=== PATIENT | male | born 1935 | race Caucasian/White ===

== ENCOUNTER 2017-03-06 09:02 | Emergency (ER) | payer OTHER, MEDICARE ==
[~2017-03-06 09:02] MED LIST: CALCIUM CARBON600 M1 PO; FOSAMAX70 M1 PO; LISINOPRIL20 M1 PO; NORVASC5 M1 PO; OMEGA-3 FISH O1 EAC4 PO; PRADAXA150 M1 PO; VITAMIN B-121000 MC3 PO; VITAMIN D31000 UNI2 PO; ZOCOR20 M1 PO
--- NOTE | 2017-03-06 09:30 | ED GI/GU/ABDOMINAL COMPLAINT ---
History of Present Illness General Chief Complaint: Male Genitourinary Problems Stated Complaint: ?REDNESS/PAIN ON PENIS Source: patient, family Exam Limitations: no limitations Vital Signs & Intake/Output Vital Signs & Intake/Output Vital Signs Date Time Temp Pulse Resp B/P B/P Pulse O2 O2 Flow FiO2 Mean Ox Delivery Rate 03/06 1107 96.8 60 18 140/68 100 Room Air 03/06 0907 96.2 59 20 135/75 96 Allergies Coded Allergies: NO KNOWN ALLERGIES (07/04/15) Reconcile Medications Alendronate Sodium (Fosamax) 70 MG TABLET 1 TAB PO QMON BONE (Reported) in the morning, at least 30 minutes before the first food, beverage, or medication of the day Amlodipine Besylate (Norvasc) 5 MG TABLET 1 TAB PO DAILY HEART (Reported) Calcium (Elemental-Fr Calcarb) (Calcium Carbonate) 600 MG CALCIUM (1,500 MG) TABLET 1 TAB PO BID SUPPLEMENT (Reported) Cholecalciferol (Vitamin D3) 1,000 UNIT TABLET 1 TAB PO DAILY VITAMIN SUPPORT (Reported) Cyanocobalamin (Vitamin B-12) 1,000 MCG TABLET 1 TAB PO DAILY VITAMIN SUPPORT (Reported) Dabigatran Etexilate Mesylate (Pradaxa 150 MG) 150 MG CAPSULE 1 CAP PO BID BLOOD THINNER (Reported) Lisinopril 20 MG TABLET 1 TAB PO DAILY HEART (Reported) [place]-3S/Dha/Epa/Fish Oil ([place]-3 Fish Oil 1,000 MG Sfgl) 300-1,000MG CAPSULE 1 CAP PO QPM SUPPLEMENT (Reported) Simvastatin (Zocor*) 20 MG TABLET 1 TAB PO QPM CHOLESTEROL (Reported) Triage Note: PER PT PENIS RED, AND ?SWOLLEN. NOTICED THIS AM NO PAIN WITH URINATION NO REAL PAIN Triage Nurses Notes Reviewed? yes HPI: Patient is uncircumcised and this morning his foreskin got trapped behind the head of the penis and he has been unable to replace it. He is now having throbbing pain to his penis as well as redness. There is no dysuria. There is no fluid fevers or chills. The pain is 6 out of 10. The pain increases with palpation to the area. There is no radiation. Past History Travel History Traveled to [place] past 21 day No Medical History Any Pertinent Medical History? see below for history Neurological: NONE EENT: NONE Cardiovascular: hypertension, ELEVATED CHOLESTEROL Respiratory: NONE Gastrointestinal: NONE Hepatic: NONE Renal: NONE Musculoskeletal: NONE Psychiatric: NONE Endocrine: NONE Surgical History Surgical History: LYMPH NODES Psychosocial History Who do you live with Spouse Services at Home None What is your primary language Belarusian Tobacco Use: Never used ETOH Use: denies use Illicit Drug Use: denies illicit drug use Family History Hx Contributory? No Review of Systems Review of Systems Constitutional: Reports: no symptoms. Respiratory: Reports: no symptoms. Cardiovascular: Reports: no symptoms. GI: Reports: no symptoms. Genitourinary: Reports: see HPI. Musculoskeletal: Reports: no symptoms. Neurological/Psychological: Reports: no symptoms. Immunologic/Allergic: Reports: no symptoms. Physical Exam Physical Exam General Appearance: well developed/nourished, alert, awake, anxious, mild distress Eyes: Bilateral: PERRL, EOMI. Respiratory: normal breath sounds, chest non-tender, no respiratory distress, lungs clear Cardiovascular: regular rate/rhythm, normal peripheral pulses Gastrointestinal: normal bowel sounds, soft, non-tender, no organomegaly Male Genitals: PARAPHIMOSIS Neurologic/Psych: no motor/sensory deficits, awake, alert, oriented x 3, normal gait, normal mood/affect Core Measures ACS in differential dx? No Severe Sepsis Present: No Septic Shock Present: No Progress Differential Diagnosis: PARAPHIMOSIS Plan of Care: Orders Procedure Date/time Status PROTHROMBIN TIME 03/06 1230 Complete Laboratory Tests 03/06/17 1243: PT 14.0 H, INR 1.34 H Initial ED EKG: none Comments: Unable to pull the foreskin back over the head of the penis. The penis is turning white and color and there is hyperemia around the rest. There is a fluid-filled blister at the base of the glans. Ice is being applied and the patient has been given morphine and still unable to correct the paraphimosis. Departure Departure Disposition: HOME OR SELF CARE Condition: Stable Clinical Impression Primary Impression: Paraphimosis Referrals: KEYANNA JOYCE,YAMILA GONSALEZ MD,TINY Bethea (PCP/Family) Additional Instructions: FOLLOW UP PER RECOMMENDATIONS FROM DR. BRICEÑO TAKE KELFEX 3 TIMES A DAY HAVE YOUR COUMDAIN LEVEL CHECKED IN 3 DAYS BECAUSE THE ANTIBIOTIC CAN ELEVATE YOUR LEVEL. RETURN FOR ANY CONCERNS Departure Forms: Customer Survey General Discharge Information Prescriptions: Current Visit Scripts Cephalexin (Keflex) 1 CAP PO TID #28 CAP
--- NOTE | 2017-03-06 12:51 | Cons- Urology ---
General Information and HPI Consulting Request Date of Consult: 03/06/17 Requested By: DR LO Reason for Consult: paraphimosis Source of Information: patient, family Exam Limitations: no limitations History of Present Illness: long history of tight foreskin, pulled back today and unable to return Allergies/Medications Allergies: Coded Allergies: NO KNOWN ALLERGIES (07/04/15) Home Med List: Alendronate Sodium (Fosamax) 70 MG TABLET 1 TAB PO QMON BONE (Reported) in the morning, at least 30 minutes before the first food, beverage, or medication of the day Amlodipine Besylate (Norvasc) 5 MG TABLET 1 TAB PO DAILY HEART (Reported) Calcium (Elemental-Fr Calcarb) (Calcium Carbonate) 600 MG CALCIUM (1,500 MG) TABLET 1 TAB PO BID SUPPLEMENT (Reported) Cholecalciferol (Vitamin D3) 1,000 UNIT TABLET 1 TAB PO DAILY VITAMIN SUPPORT (Reported) Cyanocobalamin (Vitamin B-12) 1,000 MCG TABLET 1 TAB PO DAILY VITAMIN SUPPORT (Reported) Dabigatran Etexilate Mesylate (Pradaxa 150 MG) 150 MG CAPSULE 1 CAP PO BID BLOOD THINNER (Reported) Lisinopril 20 MG TABLET 1 TAB PO DAILY HEART (Reported) [place]-3S/Dha/Epa/Fish Oil ([place]-3 Fish Oil 1,000 MG Sfgl) 300-1,000MG CAPSULE 1 CAP PO QPM SUPPLEMENT (Reported) Simvastatin (Zocor*) 20 MG TABLET 1 TAB PO QPM CHOLESTEROL (Reported) Current Medications: Current Medications Sig/Yanna Start time Last Medication Dose Route Stop Time Status Admin Lidocaine 0 .STK-MED ONE 03/06 1149 DC .ROUTE Lidocaine 15 ML ONCE ONE 03/06 1100 DC 03/06 PO 03/06 1101 1135 Lidocaine 0 .STK-MED ONE 03/06 1051 DC PO Morphine Sulfate 2 MG ONCE ONE 03/06 1130 DC 03/06 IV 03/06 1131 1125 Morphine Sulfate 0 .STK-MED ONE 03/06 1127 DC .ROUTE Morphine Sulfate 0 .STK-MED ONE 03/06 1011 DC .ROUTE Morphine Sulfate 2 MG ONCE ONE 03/06 1000 DC 03/06 IV 03/06 1001 1010 Past History Medical History Neurological: NONE EENT: NONE, hearing loss Cardiovascular: hypertension, ELEVATED CHOLESTEROL Respiratory: NONE Gastrointestinal: NONE Hepatic: NONE Renal: NONE Musculoskeletal: NONE Psychiatric: NONE Endocrine: NONE Surgical History Pertinent Surgical History: LYMPH NODES Psychosocial History Services at Home: None ETOH Use: denies use Illicit Drug Use: denies illicit drug use Review of Systems Review of Systems: c/o tight foreskin Review of Systems Constitutional: Denies: see HPI. EENTM: Denies: no symptoms. Cardiovascular: Denies: no symptoms. Respiratory: Denies: no symptoms. GI: Denies: no symptoms. Exam & Diagnostic Data Vital Signs and I&O Vital Signs Date Time Temp Pulse Resp B/P B/P Pulse O2 O2 Flow FiO2 Mean Ox Delivery Rate 03/06 1107 96.8 60 18 140/68 100 Room Air 03/06 0907 96.2 59 20 135/75 96 Intake & Output 03/06 1600 03/06 0800 03/06 0000 03/05 1600 03/05 0800 03/05 0000 Intake Total Output Total Balance Patient 180 lb Weight Physical Exam: awake and alert penis- paraphimosis Physical Exam General Appearance: well developed/nourished Assessment/Plan Assessment/Plan paraphimosis procedure- unable to manually reduce paraphimosis. prepped with betadine and ensthtized with 10cc 1% plain lido. dorals slit performed with closure with 3-0 chromic Other Findings/Comments: pt and eductaed on wound care will take keflex. pain meds prn hold coumadin today wound care with bacitracin and cleam with soap and water TID ov with me wednesday. Consult Acknowledgment - Thank you for your consult request. Attending MD Review Statement Attending Statement Attending MD Statement: examined this patient
[2017-03-06] MEDS ORDERED: KEFLEX250 M1 PO (13:36)
[2017-03-06 13:46] VITALS: BP 126/63
== END 2017-03-06 13:46 ==
LOC: ERH 09:02
PROVIDERS: Emergency Medicine
DX: N47.2 Paraphimosis (principal)
CPT/HCPCS: 96374; 96376

== ENCOUNTER 2017-10-18 09:42 | Inpatient (IN) | payer OTHER, MEDICARE ==
[~2017-10-18] VITALS: Ht 182.9 cm; Wt 78.5 kg
[~2017-10-18 09:42] MED LIST changes: +CIPRO500 M1 PO; +KEFLEX250 M1 PO; +MIRALAX119 GM PO
--- NOTE | 2017-10-18 09:44 | ED GENERAL ADULT ---
History of Present Illness General Chief Complaint: Fall Stated Complaint: BIBA, FALL Source: patient Exam Limitations: no limitations Vital Signs & Intake/Output Vital Signs & Intake/Output Vital Signs Date Time Temp Pulse Resp B/P B/P Pulse O2 O2 Flow FiO2 Mean Ox Delivery Rate 10/18 1152 98.0 60 16 138/62 96 Room Air 10/18 1113 98 Room Air 10/18 0949 97.7 94 16 177/65 Allergies Coded Allergies: NO KNOWN ALLERGIES (NONE 09/13/17) Reconcile Medications Amlodipine Besylate (Norvasc) 5 MG TABLET 1 TAB PO DAILY HEART (Reported) Calcium (Elemental-Fr Calcarb) (Calcium Carbonate) 600 MG CALCIUM (1,500 MG) TABLET 1 TAB PO BID SUPPLEMENT (Reported) Cholecalciferol (Vitamin D3) 1,000 UNIT TABLET 1 TAB PO DAILY VITAMIN SUPPORT (Reported) Cyanocobalamin (Vitamin B-12) 1,000 MCG TABLET 1 TAB PO DAILY VITAMIN SUPPORT (Reported) Dabigatran Etexilate Mesylate (Pradaxa 150 MG) 150 MG CAPSULE 1 CAP PO BID BLOOD THINNER (Reported) Lisinopril 20 MG TABLET 1 TAB PO DAILY HEART (Reported) [place]-3S/Dha/Epa/Fish Oil ([place]-3 Fish Oil 1,000 MG Sfgl) 300-1,000MG CAPSULE 1 CAP PO QPM SUPPLEMENT (Reported) Polyethylene Glycol 3350 (Miralax) 17 GRAM/DOSE POWDER 17 GM PO DAILY constipation mix with water, juice, soda, coffee or tea Simvastatin (Zocor*) 20 MG TABLET 1 TAB PO QPM CHOLESTEROL (Reported) Triage Nurses Notes Reviewed? yes Onset: Abrupt Duration: hour(s): Timing: recent history HPI: 10/17/17 82-year-old male presents to the emergency department for fall. The patient states he was putting salt on the driveway slipped and fell. He injured his right hip. The onset of the symptoms was abrupt, the duration was just today, the severity is significant; as his symptoms required him to come to the emergency department for care. He has a past medical history of pacemaker. Past History Travel History Traveled to [place] past 21 day No Medical History Any Pertinent Medical History? see below for history Neurological: NONE EENT: hearing loss Cardiovascular: hypertension, hyperlipidemia Respiratory: NONE Gastrointestinal: NONE Hepatic: NONE Renal: kidney stones Musculoskeletal: NONE Psychiatric: NONE Endocrine: NONE Blood Disorders: NONE Cancer(s): MOUTH/TONGUE CANCER History of MRSA: No History of VRE: No History of CDIFF: No Surgical History Surgical History: LYMPH NODES Psychosocial History Who do you live with Spouse Services at Home None What is your primary language Icelandic Family History Hx Contributory? No Review of Systems Review of Systems Constitutional: Denies: fever. EENTM: Denies: visual changes. Respiratory: Denies: short of breath. Cardiovascular: Denies: chest pain. GI: Denies: abdominal pain. Genitourinary: Reports: no symptoms. Musculoskeletal: Reports: see HPI. Skin: Denies: rash. Neurological/Psychological: Reports: no symptoms. Hematologic/Endocrine: Reports: no symptoms. Immunologic/Allergic: Reports: no symptoms. Physical Exam Physical Exam General Appearance: awake, anxious, mild distress Head: atraumatic, normal appearance Eyes: Bilateral: normal appearance, PERRL, EOMI. Ears, Nose, Throat: normal pharynx, normal ENT inspection Neck: normal inspection, supple, full range of motion Respiratory: normal breath sounds, chest non-tender, no respiratory distress Cardiovascular: regular rate/rhythm Gastrointestinal: soft, non-tender Back: normal range of motion Extremities: normal inspection, tenderness Neurologic/Psych: awake, alert Skin: intact, normal color, warm/dry Comments: The patient has a small bruise to the right hip. He is unable to straighten the right hip. He has tenderness to the right elbow, the right knee, and the right hip. Neck is nontender. There is no evidence of head injury. He is not on any anticoagulants. Core Measures ACS in differential dx? No CVA/TIA Diagnosis: No Sepsis Present: No Sepsis Focused Exam Completed? No Progress Differential Diagnoses I considered the following diagnoses in my evaluation of the patient: [Head injury, cervical spine injury, hip fracture, syncope] Plan of Care: Orders Procedure Date/time Status Nothing by Mouth 10/18 D Active ED Holding Orders 10/18 1224 Active Admit to inpatient 10/18 1224 Active Vital Signs 10/18 1224 Active Code Status 10/18 1224 Active TROPONIN LEVEL 10/18 1000 Complete PROTHROMBIN TIME 10/18 1000 Complete COMPREHENSIVE METABOLIC PANEL 10/18 1000 Complete CBC WITHOUT DIFFERENTIAL 10/18 1000 Complete TYPE & SCREEN (NOT X-MATCH) 10/18 1000 Active EKG 10/18 0943 Active Current Medications Sig/Yanna Start time Last Medication Dose Stop Time Status Admin Sodium Chloride 1,000 ML ONCE ONE 10/18 1130 AC 10/18 (Normal Saline 0.9%) 10/19 0049 1143 Laboratory Tests 10/18/17 1142: Anion Gap 8, Estimated GFR > 60, BUN/Creatinine Ratio 23.6, Glucose 114 H, Calcium 9.4, Total Bilirubin 0.3, AST 20, ALT 30, Alkaline Phosphatase 48, Troponin I 0.02, Total Protein 5.6 L, Albumin 3.1 L, Globulin 2.5, Albumin/ Globulin Ratio 1.2, PT 12.4, INR 1.18 H 10/18/17 1107: CBC w Diff NO MAN DIFF REQ, RBC 2.92 L, MCV 87.7, MCH 29.3, RDW 15.8 H, MPV 7.4, Gran % 81.5 H, Lymphocytes % 9.8 L, Monocytes % 6.9, Eosinophils % 0.5, Basophils % 1.3, Absolute Granulocytes 6.9 H, Absolute Lymphocytes 0.8 L, Absolute Monocytes 0.6, Absolute Eosinophils 0, Absolute Basophils 0.1, PUBS MCHC 33.4 Initial ED EKG: atrial paced beats Departure Departure Disposition: STILL A PATIENT Condition: Stable Clinical Impression Primary Impression: Fall Secondary Impressions: Hip fracture requiring operative repair Referrals: Luke Jaquez MD (PCP/Family) Departure Forms: Customer Survey General Discharge Information Admission Note Spoke With: Shoshana JOYCE,Jennifer Documentation of Exam: Documentation of any treatments & extenuating circumstances including Concerns Regarding Discharge (functional status, medication knowledge or non-compliance, living conditions, etc.) that warrant an admission rather than observation: [The patient is being admitted for a hip fracture for operative care. He has a pacemaker, significant anemia, and history of hematuria. He will need medical clearance prior to surgery.] Critical Care Note Critical Care Note Critical Care Time: non-applicable
[2017-10-18 11:19] LABS: ABSOLUTE BASOPHIL COUNT 0.1 /CUMM (0.0-0.2); ABSOLUTE EOSINOPHIL COUNT 0 /CUMM (0.0-0.7); ABSOLUTE GRANULOCYTE CT 6.9 /CUMM (1.4-6.5); ABSOLUTE LYMPH COUNT 0.8 /CUMM (1.2-3.4); ABSOLUTE MONOCYTE COUNT 0.6 /CUMM (0.10-0.60); BASOPHIL % 1.3 % (0.0-2.0); EOSINOPHIL % 0.5 % (0-5); GRANULOCYTE % 81.5 % (42.2-75.2); HEMATOCRIT 25.6 % (42-52); MEAN CORPUSCULAR HGB 29.3 PG (27.0-31.0); MEAN CORPUSCULAR HGB CONC 33.4 G/DL (33.0-37.0); MEAN CORPUSCULAR VOLUME 87.7 FL (80.0-94.0); MEAN PLATELET VOLUME 7.4 FL (7.4-10.4); PLATELET COUNT 254 /CUMM (130-400); RBC DISTRIBUTION WIDTH 15.8 % (11.5-14.5); RED BLOOD CELL CT 2.92 /CUMM (4.70-6.10); WHITE BLOOD CELL COUNT 8.5 /CUMM (4.8-10.8)
[2017-10-18 11:59] LABS: PT 12.4 SEC (9.4-12.5)
--- NOTE | 2017-10-18 12:17 | RADIOLOGY REPORT ---
EXAMINATION: XR KNEE, RIGHT AP chest Right elbow AP pelvis Right hip CLINICAL INFORMATION: Fall with pain COMPARISON: Chest x-ray of January 09, 2013 abdominal study of September 23, 2017 TECHNIQUE: Single view of the right knee. AP pelvis AP chest Two-view right hip 4 view right elbow FINDINGS: AP film of the chest does not demonstrate any evidence of acute parenchymal disease, pneumothorax, or pleural effusion. The cardiopericardial silhouette is enlarged. No evidence of pulmonary edema. Dual-chamber pacemaker in place. Single lateral view of the right knee does not demonstrate acute fracture or effusion on this one view. Minor spurring is seen undersurface of the patella. There is a patella spur site of insertion of the quadriceps tendon. Prominent vascular calcifications are present. 4 views of the right elbow do not demonstrate any evidence of acute fracture or dislocation. No elbow effusion is seen. There are 4 radiopaque foreign bodies seen within the soft tissues about the dorsal ulnar aspects of the elbow and proximal ulna. There is some associated soft tissue swelling. AP film of the pelvis demonstrates what appears to represent a combination basicervical and intratrochanteric fracture of the right hip. There is some mild medial angulation distal fracture fragment. No dislocation is evident. No fracture or diastases of the pelvis is seen. A left ureteral stent is seen in place. 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 Left hip joint space appears maintained. Calcifications about the greater trochanter seen bilaterally. Views of the right hip do not demonstrate any evidence of dislocation. There is an essentially nondisplaced question impacted fracture proximal femur which appears to be involving the distal neck as well as being intratrochanteric. There is some mild medial angulation of the distal fracture fragment. IMPRESSION: Proximal right femoral fracture which appears to involve the basicervical and intratrochanteric regions which may be partially impacted. No acute fracture or diastases of the pelvis. Degenerative change lumbar spine. No acute parenchymal disease within the chest. No acute fracture or effusion of the right elbow. Small radiopaque foreign bodies as described. Limited right knee study with lateral view which does not demonstrate any evidence of acute fracture or effusion.
--- NOTE | 2017-10-18 13:45 | History & Physical ---
Kingsley JOYCE,Chinyere 10/18/17 5485: General Information and HPI MD Statement: I have seen and personally examined JOEY LAKE and documented this H&P. The patient is a 82 year old M who presented with a patient stated chief complaint of [ fall]. Source of Information: patient, family Exam Limitations: no limitations History of Present Illness: Patient is an 82-year-old male with significant past medical history of osteoporosis(T-score value of -2.9 in the femoral neck), atrial fibrillation s/p pacemaker on pradaxa, hypertension, hyperlipidemia, presbycusis, Severe chronic right-sided hydronephrosis s/p ureteral stent( 4 weeks ago), mouth/tongue cancer , presented with an episode of fall. Most of the history is taken from the patients , as patient is hard of hearing. According to the her patient fall today on ice while walking down on his front stairs. He fell on the right hip and injured his hip and the right knee. He was unable to get off the ground for around 15 minutes. At the time of presentation, he was having pain on the right hip and the knees. According to the patient, , he does not had any headache, dizziness, palpitation, chest pain, shortness of breath before and afterwards. She denies for any confusion, incontinence of stool and urine afterwards. Of note, patient is having history of chronic severe left-sided hydronephrosis status post ureteral stent inserted around 4 weeks ago. He is following Dr. Chinchilla and it was planned to remove the stent tomorrow on 10/19/2017 and for that he is off Pradaxa since Wednesday night. He continues to have hematuria. Denies for any bleeding from any other site of the body. Past medical history - Atrial fibrillation s/p pacemaker on pradaxa x 6 yrs Severe chronic left-sided hydronephrosis s/p ureteral stent( 4 weeks ago) Mouth/tongue cancer(need records) Past admission September/2017 - stercoral colitis 2009 -PAF Personal history -lives with the family, hard of hearing, can walk without any support, quit smoking around 20 years ago and before that he was smoking around one pack per day. Denies alcohol and illicit drug abuse. Allergies -no known drug allergy Surgeries-history of sciatica. We did a laminectomy, history of oral cavity cancer Family history-sibling/brother - [place] /cancer - Allergies/Medications Allergies: Coded Allergies: NO KNOWN ALLERGIES (NONE 09/13/17) Home Med list Amlodipine Besylate (Norvasc) 5 MG TABLET 1 TAB PO DAILY HEART (Reported) Calcium (Elemental-Fr Calcarb) (Calcium Carbonate) 600 MG CALCIUM (1,500 MG) TABLET 1 TAB PO BID SUPPLEMENT (Reported) Cholecalciferol (Vitamin D3) 1,000 UNIT TABLET 1 TAB PO DAILY VITAMIN SUPPORT (Reported) Cyanocobalamin (Vitamin B-12) 1,000 MCG TABLET 1 TAB PO DAILY VITAMIN SUPPORT (Reported) Dabigatran Etexilate Mesylate (Pradaxa 150 MG) 150 MG CAPSULE 1 CAP PO BID BLOOD THINNER (Reported) Lisinopril 20 MG TABLET 1 TAB PO DAILY HEART (Reported) [place]-3S/Dha/Epa/Fish Oil ([place]-3 Fish Oil 1,000 MG Sfgl) 300-1,000MG CAPSULE 1 CAP PO QPM SUPPLEMENT (Reported) Polyethylene Glycol 3350 (Miralax) 17 GRAM/DOSE POWDER 17 GM PO DAILY constipation mix with water, juice, soda, coffee or tea Simvastatin (Zocor*) 20 MG TABLET 1 TAB PO QPM CHOLESTEROL (Reported) Past History Travel History Traveled to [place] past 21 day No Medical History Neurological: NONE EENT: hearing loss Cardiovascular: hypertension, hyperlipidemia Respiratory: NONE Gastrointestinal: NONE Hepatic: NONE Renal: kidney stones Musculoskeletal: NONE Psychiatric: NONE Endocrine: NONE Blood Disorders: NONE Cancer(s): MOUTH/TONGUE CANCER History of MRSA: No History of VRE: No History of CDIFF: No Surgical History Surgical History: LYMPH NODES Past Family/Social History Psychosocial History Services at Home: None ETOH Use: denies use, Illicit Drug Use: denies illicit drug use Review of Systems Review of Systems Constitutional: Denies: no symptoms. Exam & Diagnostic Data Last 24 Hrs of Vital Signs/I&O Vital Signs Date Time Temp Pulse Resp B/P B/P Pulse O2 O2 Flow FiO2 Mean Ox Delivery Rate 10/18 1339 98.4 61 16 132/64 97 Room Air 10/18 1152 98.0 60 16 138/62 96 Room Air 10/18 1113 98 Room Air 10/18 0949 97.7 94 16 177/65 Intake & Output 10/18 1600 10/18 0800 10/18 0000 Intake Total 0 Output Total Balance 0 Intake, Oral 0 Patient 74.843 kg Weight Weight Estimated Measurement Method Physical Exam General Appearance Alert, Oriented X3, Cooperative, Severe Distress Cardiovascular Normal S1, Normal S2, irregular pulse Lungs Clear to Auscultation, Normal Air Movement Extremities No Clubbing, No Cyanosis, No Edema, tenderness on right hip Vascular Normal Pulses, Pulses Symmetrical Last 24 Hrs of Labs/Laron: Laboratory Tests 10/18/17 1142: Anion Gap 8, Estimated GFR > 60, BUN/Creatinine Ratio 23.6, Glucose 114 H, Calcium 9.4, Total Bilirubin 0.3, AST 20, ALT 30, Alkaline Phosphatase 48, Troponin I 0.02, Total Protein 5.6 L, Albumin 3.1 L, Globulin 2.5, Albumin/ Globulin Ratio 1.2, PT 12.4, INR 1.18 H 10/18/17 1107: CBC w Diff NO MAN DIFF REQ, RBC 2.92 L, MCV 87.7, MCH 29.3, RDW 15.8 H, MPV 7.4, Gran % 81.5 H, Lymphocytes % 9.8 L, Monocytes % 6.9, Eosinophils % 0.5, Basophils % 1.3, Absolute Granulocytes 6.9 H, Absolute Lymphocytes 0.8 L, Absolute Monocytes 0.6, Absolute Eosinophils 0, Absolute Basophils 0.1, PUBS MCHC 33.4 Diagnostic Data EKG Results Atrial paced complexes, right bundle branch block, left anterior fascicular block, GA interval 212, heart rate 60, QTC 484, CXR Results No acute parenchymal disease within the chest. Other Results X ray - Proximal right femoral fracture which appears to involve the basicervical and intratrochanteric regions which may be partially impacted. No acute fracture or diastases of the pelvis. Degenerative change lumbar spine. No acute parenchymal disease within the chest. No acute fracture or effusion of the right elbow. Small radiopaque foreign bodies as described. Limited right knee study with lateral view which does not demonstrate any evidence of acute fracture or effusion. Assessment/Plan Assessment: Patient is an 82-year-old male with significant past medical history of osteoporosis(T-score value of -2.9 in the femoral neck), atrial fibrillation s/p pacemaker on pradaxa, hypertension, hyperlipidemia, presbycusis, Severe chronic right-sided hydronephrosis s/p ureteral stent( 4 weeks ago), mouth/tongue cancer , presented with an episode of fall. ED course -vital signs at the time of admission -temperature 97.7, pulse 94, respiratory 16, blood pressure 177/65, SPO2 98% on room air.Blood workup showed hemoglobin 8.5, hematocrit 25.6, platelet count 254, granulocyte 81.5, lymphocyte 9.8, sodium 142, potassium 4, chloride 112, BUN 26, creatinine 1.1, glucose 114, albumin 3.1, troponin 0.02, PT/INR 12.4/1.18.X-ray - showed a small right femoral fracture, involve the basicervical and intratrochanteric regions. Orthopedic consult was done and advised for surgery. Patient was transferred to telemetry floor for further cardiology evaluation and management. Assessment and plan - Right femoral fracture after fall with a history of osteoporosis - * We will admit the patient to telemetry floor for further cardiac monitoring * We'll do serial EKGs and troponins * According to Dr Samayoa, patient needs ORIF * We'll follow cardiology recommendation for cardiac clearance for ORIF * We will continue calcium/vitamin D/Pradaxa as before * PT/OT * We'll keep nothing by mouth from midnight * Pradaxa is already on hold since Wednesday night. * We'll continue her home medication Diet - heart healthy diet CODE STATUS- full code As Ranked By This Provider Problem List: 1. Hip fracture due to osteoporosis Core Measures/Misc (07/11) Acute Coronary Syndrome ACS Diagnosis: No Congestive Heart Failure Congestive Heart Failure Diagnosis No Cerebrovascular Accident CVA/TIA Diagnosis: No VTE (View Protocol) VTE Risk Factors Acute Medical Illness No Mechanical VTE Prophylaxis d/t Other No VTE Pharm Prophylaxis d/t Other Sepsis (View protocol) Sepsis Present: No Jennifer Anna 10/18/17 1509: Attending MD Review Statement Attending Statement Attending MD Statement: examined this patient, discuss w/resident/PA/BUSINESS CONTINUITY CONSULTANT, agreed w/resident/PA/BUSINESS CONTINUITY CONSULTANT, discussed with family, reviewed EMR data (avail), discussed with nursing, discussed with case mgmt, reviewed images, amended to note Attending Assessment/Plan: Patient with pmh of afib on pradaxa s/p pacemaker htn hyperlipdemia right sided hydronephrosis s/p stent for nephrolithiasis 4 weeks ago. Patient had slip and fall with right femoral fracture without palpitations. Patient is aaox 3 oriented. lab and vitals reviewed. initial trop 0.02 hb 8.5 Patient is admitted to telemetry monitoring for afib s/p pacemaker and right femoral fracture. Patient is off pradaxa. Anemia of chronic disease and from hematuria. Cardiology consult. Serial cardiac enzymes r/o ACS, INR. NPO from midnight. Patient might need blood transfusion in meghan-opertive period. Type and screen. Monitor labs. Pain control. Orthopedics consult for hip repair. Plan for OR as per orthopedics. Patient is low to moderate risk for procedure. Patient is stable for surgery.
[2017-10-18 14:40] VITALS: BP 134/68
[2017-10-18 16:00] VITALS: BP 138/66
--- NOTE | 2017-10-18 16:14 | Cons- Orthopedic ---
General Information and HPI Consulting Request Date of Consult: 10/18/17 Requested By: Jennifer Anna MD Reason for Consult: Right hip fracture Source of Information: patient, old records Exam Limitations: poor historian History of Present Illness: This is an 82 year-old male with history of hypertension, hyperlipidemia, afib on pradaxa, osteoporosis, nephrolithiasis and a history of mouth/tongue cancer who was biba to the emergency department with right-sided hip and knee pain status post fall. The patient states he was putting salt on the driveway this morning and slipped and fell, landing on his right hip, scraping his elbow and knee. He reports immediate hip pain and states he could not get up after the fall and had his family call 911. He denies any head trauma, chest pain, shortness or breath, trouble breathing, dizziness or lightheadedness, numbness or tingling. He states he was scheduled to have a left stent removed with Dr. Chinchilla tomorrow and has therefore been off his Pradaxa since Wednesday. Allergies/Medications Allergies: Coded Allergies: NO KNOWN ALLERGIES (NONE 09/13/17) Home Med List: Amlodipine Besylate (Norvasc) 5 MG TABLET 1 TAB PO DAILY HEART (Reported) Calcium (Elemental-Fr Calcarb) (Calcium Carbonate) 600 MG CALCIUM (1,500 MG) TABLET 1 TAB PO BID SUPPLEMENT (Reported) Cholecalciferol (Vitamin D3) 1,000 UNIT TABLET 1 TAB PO DAILY VITAMIN SUPPORT (Reported) Cyanocobalamin (Vitamin B-12) 1,000 MCG TABLET 1 TAB PO DAILY VITAMIN SUPPORT (Reported) Dabigatran Etexilate Mesylate (Pradaxa 150 MG) 150 MG CAPSULE 1 CAP PO BID BLOOD THINNER (Reported) Lisinopril 20 MG TABLET 1 TAB PO DAILY HEART (Reported) [place]-3S/Dha/Epa/Fish Oil ([place]-3 Fish Oil 1,000 MG Sfgl) 300-1,000MG CAPSULE 1 CAP PO QPM SUPPLEMENT (Reported) Polyethylene Glycol 3350 (Miralax) 17 GRAM/DOSE POWDER 17 GM PO DAILY constipation mix with water, juice, soda, coffee or tea Simvastatin (Zocor*) 20 MG TABLET 1 TAB PO QPM CHOLESTEROL (Reported) Past History Medical History Neurological: NONE EENT: hearing loss Cardiovascular: AFIB, hypertension, hyperlipidemia Respiratory: NONE Gastrointestinal: NONE Hepatic: NONE Renal: kidney stones Musculoskeletal: NONE Psychiatric: NONE Endocrine: NONE Blood Disorders: NONE Cancer(s): MOUTH/TONGUE CANCER Surgical History Pertinent Surgical History: LYMPH NODES, Pacemaker, Lithotripsy with stent placement Psychosocial History Services at Home: None ETOH Use: denies use, Illicit Drug Use: denies illicit drug use Employment History Employment: 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 EENTM: Denies: no symptoms. Respiratory: Denies: no symptoms. Cardiovascular: Denies: no symptoms. GI: Denies: no symptoms. Genitourinary: Reports: no symptoms. Musculoskeletal: Reports: see HPI. Skin: Denies: no symptoms. Neurological/Psychological: Reports: no symptoms. Hematologic/Endocrine: Reports: no symptoms. Immunologic/Allergic: Reports: no symptoms. Exam & Diagnostic Data Vital Signs and I&O Vital Signs Date Time Temp Pulse Resp B/P B/P Pulse O2 O2 Flow FiO2 Mean Ox Delivery Rate 10/18 1339 98.4 61 16 132/64 97 Room Air 10/18 1152 98.0 60 16 138/62 96 Room Air 10/18 1113 98 Room Air 10/18 0949 97.7 94 16 177/65 Intake & Output 10/18 1600 10/18 0800 10/18 0000 10/17 1600 10/17 0800 10/17 0000 Intake Total 0 Output Total Balance 0 Intake, Oral 0 Patient 165 lb Weight Weight Estimated Measurement Method Physical Exam: General: Awake an alert in the stretcher, in mild distress secondary to pain HEENT: NC/AT, white plaque on the posterior left side of his tongue, neck with firm nontender bulge on the left side with an old incision noted Cardiac: Right-sided pacemaker present, RRR Lungs: CTAB Abdomen: Soft, nondistended and nontender Extremities: RLE inspected, externally flexed 60 degrees, with a pillow propped in between, unable to straighten RLE, compartments are soft and right hip, knee and elbow are appropriately tender Last 24 Hours of Labs: Laboratory Tests 10/18 10/18 1142 1107 Chemistry Sodium (137 - 145 mmol/L) 142 Potassium (3.5 - 5.1 mmol/L) 4.0 Chloride (98 - 107 mmol/L) 112 H Carbon Dioxide (22 - 30 mmol/L) 22 Anion Gap (5 - 16) 8 BUN (9 - 20 mg/dL) 26 H Creatinine (0.7 - 1.2 mg/dL) 1.1 Estimated GFR (>60 ml/min) > 60 BUN/Creatinine Ratio (7 - 25 %) 23.6 Glucose (65 - 99 mg/dL) 114 H Calcium (8.4 - 10.2 mg/dL) 9.4 Total Bilirubin (0.2 - 1.3 mg/dL) 0.3 AST (17 - 59 U/L) 20 ALT (21 - 72 U/L) 30 Alkaline Phosphatase (< 127 U/L) 48 Troponin I (<0.11 ng/ml) 0.02 Total Protein (6.3 - 8.2 g/dL) 5.6 L Albumin (3.5 - 5.0 g/dL) 3.1 L Globulin (1.9 - 4.2 gm/dL) 2.5 Albumin/Globulin Ratio (1.1 - 2.2 %) 1.2 Coagulation PT (9.4 - 12.5 SEC) 12.4 INR (0.90 - 1.17) 1.18 H Hematology CBC w Diff NO MAN DIFF REQ WBC (4.8 - 10.8 /CUMM) 8.5 RBC (4.70 - 6.10 /CUMM) 2.92 L Hgb (14.0 - 18.0 G/DL) 8.5 L Hct (42 - 52 %) 25.6 L MCV (80.0 - 94.0 FL) 87.7 MCH (27.0 - 31.0 PG) 29.3 RDW (11.5 - 14.5 %) 15.8 H Plt Count (130 - 400 /CUMM) 254 MPV (7.4 - 10.4 FL) 7.4 Gran % (42.2 - 75.2 %) 81.5 H Lymphocytes % (20.5 - 51.1 %) 9.8 L Monocytes % (1.7 - 9.3 %) 6.9 Eosinophils % (0 - 5 %) 0.5 Basophils % (0.0 - 2.0 %) 1.3 Absolute Granulocytes (1.4 - 6.5 /CUMM) 6.9 H Absolute Lymphocytes (1.2 - 3.4 /CUMM) 0.8 L Absolute Monocytes (0.10 - 0.60 /CUMM) 0.6 Absolute Eosinophils (0.0 - 0.7 /CUMM) 0 Absolute Basophils (0.0 - 0.2 /CUMM) 0.1 PUBS MCHC (33.0 - 37.0 G/DL) 33.4 Imaging Results: SERVICE DATE: 10/18/17-1000 EXAM TYPE: RAD - XRY-AP PELVIS; XRY-CHEST XRAY, ONE VIEW ONLY; XRY-ELBOW, AP & LATERAL, RIGHT; XRY-HIP 2-3 VIEWS, RIGHT; XRY-KNEE, RIGHT EXAMINATION: XR KNEE, RIGHT AP chest Right elbow AP pelvis Right hip CLINICAL INFORMATION: Fall with pain COMPARISON: Chest x-ray of January 09, 2013 abdominal study of September 23, 2017 TECHNIQUE: Single view of the right knee. AP pelvis AP chest Two-view right hip 4 view right elbow FINDINGS: AP film of the chest does not demonstrate any evidence of acute parenchymal disease, pneumothorax, or pleural effusion. The cardiopericardial silhouette is enlarged. No evidence of pulmonary edema. Dual-chamber pacemaker in place. Single lateral view of the right knee does not demonstrate acute fracture or effusion on this one view. Minor spurring is seen undersurface of the patella. There is a patella spur site of insertion of the quadriceps tendon. Prominent vascular calcifications are present. 4 views of the right elbow do not demonstrate any evidence of acute fracture or dislocation. No elbow effusion is seen. There are 4 radiopaque foreign bodies seen within the soft tissues about the dorsal ulnar aspects of the elbow and proximal ulna. There is some associated soft tissue swelling. AP film of the pelvis demonstrates what appears to represent a combination basicervical and intratrochanteric fracture of the right hip. There is some mild medial angulation distal fracture fragment. No dislocation is evident. No fracture or diastases of the pelvis is seen. A left ureteral stent is seen in place. 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 Left hip joint space appears maintained. Calcifications about the greater trochanter seen bilaterally. Views of the right hip do not demonstrate any evidence of dislocation. There is an essentially nondisplaced question impacted fracture proximal femur which appears to be involving the distal neck as well as being intratrochanteric. There is some mild medial angulation of the distal fracture fragment. IMPRESSION: Proximal right femoral fracture which appears to involve the basicervical and intratrochanteric regions which may be partially impacted. No acute fracture or diastases of the pelvis. Degenerative change lumbar spine. No acute parenchymal disease within the chest. No acute fracture or effusion of the right elbow. Small radiopaque foreign bodies as described. Limited right knee study with lateral view which does not demonstrate any evidence of acute fracture or effusion. Assessment/Plan Assessment/Plan This is an 82 year-old male with a history of hypertension, hyperlipidemia, afib on pradaxa, osteoporosis, a history of mouth/tongue cancer and left ureter and renal stones status post left ureteroscopy with laser lithotripsy and stent insertion who presents with a right proximal femoral fracture status post mechanical fall who requires surgical intervention. Admit to medicine Obtain medical/cardiac clearace Hold pradaxa in anticipation of surgery Keep npo after midnight on IVF NWB of RLE [place] for comfort Keep comfortable with analgesics Proceed to OR once cleared ? left stent removal with Dr. Chinchilla F/u CT head to rule out ICH Discussed with Dr. Landry Consult Acknowledgment - Thank you for your consult request.
--- NOTE | 2017-10-18 16:54 | CT SCAN REPORT ---
EXAMINATION: CT HEAD WITHOUT CONTRAST CLINICAL INFORMATION: Fall on blood thinner. Rule out intracranial bleed. COMPARISON: CT head 03/23/2010. TECHNIQUE: Contiguous axial imaging was performed from the skull base to vertex without intravenous administration of contrast. DLP: 647.92 mGy-cm FINDINGS: Artifact from right cochlear implant limits evaluation of portions of the right cerebral hemisphere. Within limitations of the examination there is no evidence for acute intracranial hemorrhage. Generalized parenchymal atrophy of the brain with proportion dilation of the ventricles, sulci, and basilar cisterns. There is a small region of encephalomalacia within the left basal ganglia compatible with remote lacunar infarction. There are intracranial atherosclerotic calcifications. There is no evidence of acute territorial infarction. No abnormal mass effect or midline shift is seen. Q[place] to white matter differentiation is well preserved. No extra-axial fluid collections are identified. There is no abnormal attenuation within the brain parenchyma. The osseous structures and soft tissues are normal. The visualized portions of the paranasal sinuses are well aerated. Partial fluid opacification of the left mastoid air cells which appears similar to prior examination. The jamul ocular lenses are surgically absent. The globes and retrobulbar soft tissues are otherwise within normal limits. IMPRESSION: No evidence of acute intracranial hemorrhage or other acute intracranial pathology. Remote appearing left lacunar infarction. Generalized parenchymal atrophy of the brain with intracranial atherosclerotic disease.
--- NOTE | 2017-10-18 19:23 | Cons- Cardiology ---
General Information and HPI Consulting Request Date of Consult: 10/18/17 Requested By: Jennifer Anna MD History of Present Illness: Mr. Matthews is an 82 year old male with history of hypertension, dyslipidemia, atrial fibrillation on Pradaxa and permanent pacemaker for sick sinus syndrome. The patient slipped on ice today while walking down his front stairs acquiring a right femoral fracture. He now anticipates surgery. At baseline this patient is relatively inactive but does walk slowly. He denies any chest discomfort, shortness of breath, lightheadedness or palpitations. The patient carries a history of right sided hydronephrosis status post ureteral stent placed a month ago. He is followed by Dr. Chinchilla who planned on removing the stent tomorrow. As such, the patient has been off Pradaxa since Wednesday night. Allergies/Medications Allergies: Coded Allergies: NO KNOWN ALLERGIES (NONE 09/13/17) Home Med List: Amlodipine Besylate (Norvasc) 5 MG TABLET 1 TAB PO DAILY HEART (Reported) Calcium (Elemental-Fr Calcarb) (Calcium Carbonate) 600 MG CALCIUM (1,500 MG) TABLET 1 TAB PO BID SUPPLEMENT (Reported) Cholecalciferol (Vitamin D3) 1,000 UNIT TABLET 1 TAB PO DAILY VITAMIN SUPPORT (Reported) Cyanocobalamin (Vitamin B-12) 1,000 MCG TABLET 1 TAB PO DAILY VITAMIN SUPPORT (Reported) Dabigatran Etexilate Mesylate (Pradaxa 150 MG) 150 MG CAPSULE 1 CAP PO BID BLOOD THINNER (Reported) Lisinopril 20 MG TABLET 1 TAB PO DAILY HEART (Reported) [place]-3S/Dha/Epa/Fish Oil ([place]-3 Fish Oil 1,000 MG Sfgl) 300-1,000MG CAPSULE 1 CAP PO QPM SUPPLEMENT (Reported) Polyethylene Glycol 3350 (Miralax) 17 GRAM/DOSE POWDER 17 GM PO DAILY constipation mix with water, juice, soda, coffee or tea Simvastatin (Zocor*) 20 MG TABLET 1 TAB PO QPM CHOLESTEROL (Reported) Review of Systems Review of Systems: presbycussis Past History Travel History Traveled to [place] past 21 day No Medical History Blood Transfusion Hx: No Neurological: NONE EENT: hearing loss Cardiovascular: AFIB, hypertension, hyperlipidemia Respiratory: NONE Gastrointestinal: NONE Hepatic: NONE Renal: kidney stones Musculoskeletal: NONE Psychiatric: NONE Endocrine: NONE Blood Disorders: NONE Cancer(s): MOUTH/TONGUE CANCER Surgical History Surgical History: LYMPH NODES Pacemaker Lithotripsy with stent placement Psychosocial History Where Do You Live? 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 Exam & Diagnostic Data Vital Signs and I&O Vital Signs Date Time Temp Pulse Resp B/P B/P Pulse O2 O2 Flow FiO2 Mean Ox Delivery Rate 10/18 1605 97.5 61 16 135/63 98 Room Air 10/18 1600 98.3 59 16 138/66 97 Room Air 10/18 1440 134/68 10/18 1339 98.4 61 16 132/64 97 Room Air 10/18 1152 98.0 60 16 138/62 96 Room Air 10/18 1113 98 Room Air 10/18 0949 97.7 94 16 177/65 Intake & Output 10/18 1600 10/18 0800 10/18 0000 10/17 1600 10/17 0800 10/17 0000 Intake Total 0 Output Total Balance 0 Intake, Oral 0 Patient 165 lb Weight Weight Estimated Measurement Method Physical Exam: General: WD/WN male in NAD; alert and oriented x 3 HEENT: NC/AT, PERRL, EOMI Neck: no JVD, no carotid bruit Heart: RRR with 2/6 systolic murmur Lungs: clear bilaterally Abdomen: soft, NT, +ve bowel sounds Extremities: no edema Assessment/Plan Assessment/Plan * This patient is only mildly active but has no history of myocardial ischemia, congestive heart failure or decreased EF. He has a junctional heart rhythm with permanent pacemaker. The patient has been off Pradaxa which was stopped in anticipation of a urologic procedure planned for tomorrow. This patient is doing well and is cleared for orthopedic surgery without any further cardiac workup. * Obtain an echocardiogram to assess the patient's EF but the results of this test are not needed for cardiac clearance. Consult Acknowledgment - Thank you for your consult request.
[2017-10-18 22:43] VITALS: BP 128/64
[2017-10-19 07:41] VITALS: BP 130/60
[2017-10-19 07:46] LABS: ABSOLUTE BASOPHIL COUNT 0.1 /CUMM (0.0-0.2); ABSOLUTE EOSINOPHIL COUNT 0.1 /CUMM (0.0-0.7); ABSOLUTE GRANULOCYTE CT 4.5 /CUMM (1.4-6.5); ABSOLUTE LYMPH COUNT 1.3 /CUMM (1.2-3.4); ABSOLUTE MONOCYTE COUNT 0.9 /CUMM (0.10-0.60); BASOPHIL % 0.7 % (0.0-2.0); EOSINOPHIL % 1.1 % (0-5); GRANULOCYTE % 65.5 % (42.2-75.2); MEAN CORPUSCULAR HGB 30.2 PG (27.0-31.0); MEAN CORPUSCULAR VOLUME 88.8 FL (80.0-94.0); PLATELET COUNT 227 /CUMM (130-400); RBC DISTRIBUTION WIDTH 16.3 % (11.5-14.5); WHITE BLOOD CELL COUNT 6.8 /CUMM (4.8-10.8)
--- NOTE | 2017-10-19 08:03 | PN- Housestaff ---
See Addendum Subjective Follow-up For: Right femur fracture after a fall Tele-Events Since Last Visit: Paced rhythm heart rate in 60s Subjective: I have seen and examined the patient. The patient was lying comfortably in the bed. Does not complain of pain right now. If patient is going for today. Has been cleared by cardiology. Offers no complaints. No overnight acute events Review of Systems Constitutional: Reports: see HPI. Objective Last 24 Hrs of Vital Signs/I&O Vital Signs Date Time Temp Pulse Resp B/P B/P Pulse O2 O2 Flow FiO2 Mean Ox Delivery Rate 10/19 0741 98.6 59 18 130/60 96 Room Air 10/18 2243 98.6 60 18 128/64 98 Room Air 10/18 1605 97.5 61 16 135/63 98 Room Air 10/18 1600 98.3 59 16 138/66 97 Room Air 10/18 1440 134/68 10/18 1339 98.4 61 16 132/64 97 Room Air 10/18 1152 98.0 60 16 138/62 96 Room Air 10/18 1113 98 Room Air 10/18 0949 97.7 94 16 177/65 Intake & Output 10/19 1600 10/19 0800 10/19 0000 Intake Total 400 500 Output Total 150 350 Balance 250 150 Intake, IV 400 250 Intake, Oral 0 250 Number 0 Bowel Movements Output, Urine 150 350 Patient 173 lb Weight Weight Reported by Patient Measurement Method Physical Exam General Appearance: Alert, Oriented X3, Cooperative Cardiovascular: Normal S1, Normal S2, systolic murmur Lungs: Clear to Auscultation, Normal Air Movement Abdomen: Normal Bowel Sounds, Soft Current Medications: Current Medications Sig/Yanna Start time Last Medication Dose Route Stop Time Status Admin Acetaminophen 1,000 MG Q6P PRN 10/18 1545 AC N/A 1 UNIT IV Acetaminophen 0 .STK-MED ONE 10/18 1439 DC IV Acetaminophen 1,000 MG ONCE ONE 10/18 1430 DC 10/18 N/A 1 UNIT IV 10/18 1444 1436 Amlodipine Besylate 5 MG DAILY 10/19 1000 AC PO Atorvastatin Calcium 20 MG 1700 10/18 1700 AC 10/18 PO 1930 Cholecalciferol 1,000 IU DAILY 10/19 1000 AC PO Docusate Sodium 100 MG DAILY NEEDED PRN 10/18 1830 AC PO Lidocaine 1 PAT DAILY 10/18 1915 AC 10/18 EXT 2254 Lisinopril 20 MG DAILY 10/19 1000 AC PO Morphine Sulfate 1 MG ONCE ONE 10/18 1915 DC 10/18 IV 10/18 191 1930 Morphine Sulfate 1 MG Q6P PRN 10/18 1545 AC 10/19 IV 0219 Morphine Sulfate 0 .STK-MED ONE 10/18 1143 DC .ROUTE Morphine Sulfate 2 MG ONCE ONE 10/18 1130 DC 10/18 IV 10/18 1131 1143 Oxycodone/ 1 TAB Q6P PRN 10/18 1915 AC 10/19 Acetaminophen PO 0755 Polyethylene Glycol 17 GM DAILY 10/18 1829 AC PO Senna 187 MG AT BEDTIME 10/18 2200 AC PO Sodium Chloride 1,000 ML Q20H 10/19 0000 AC 10/19 IV 0221 Sodium Chloride 1,000 ML ONCE ONE 10/18 1130 DC 10/18 IV 10/19 0049 1143 Last 24 Hrs of Lab/Laron Results Last 24 Hrs of Labs/Mics: Laboratory Tests 10/19/17 0611: Anion Gap 7, Estimated GFR > 60, BUN/Creatinine Ratio 20.9, PT Pending, INR Pending, APTT Pending, CBC w Diff Pending, WBC Pending, RBC Pending, Hgb Pending , Hct Pending, MCV Pending, MCH Pending, RDW Pending, Plt Count Pending, MPV Pending, PUBS MCHC Pending 10/18/17 2330: Troponin I 0.02 10/18/17 1945: Urinalysis LIGHT H, Urine Color BLDY H, Urine Clarity TURBD H, Urine pH 6.0, Ur Specific [place] 1.025, Urine Protein >=300 H, Urine Ketones NEG, Urine Nitrite NEG, Urine Bilirubin NEG, Urine Urobilinogen 0.2, Ur Leukocyte Esterase NEG, Ur Microscopic SEDIMENT EXAMINED, Urine RBC PACKD H, Urine WBC 10-15 H, Ur Epithelial Cells FEW, Urine Bacteria MANY H, Urine Mucus FEW, Urine Hemoglobin LARGE H, Urine Glucose NEG 10/18/17 1753: Troponin I 0.02 10/18/17 1142: Anion Gap 8, Estimated GFR > 60, BUN/Creatinine Ratio 23.6, Glucose 114 H, Calcium 9.4, Total Bilirubin 0.3, AST 20, ALT 30, Alkaline Phosphatase 48, Troponin I 0.02, Total Protein 5.6 L, Albumin 3.1 L, Globulin 2.5, Albumin/ Globulin Ratio 1.2, PT 12.4, INR 1.18 H 10/18/17 1107: CBC w Diff NO MAN DIFF REQ, RBC 2.92 L, MCV 87.7, MCH 29.3, RDW 15.8 H, MPV 7.4, Gran % 81.5 H, Lymphocytes % 9.8 L, Monocytes % 6.9, Eosinophils % 0.5, Basophils % 1.3, Absolute Granulocytes 6.9 H, Absolute Lymphocytes 0.8 L, Absolute Monocytes 0.6, Absolute Eosinophils 0, Absolute Basophils 0.1, PUBS MCHC 33.4 Assessment/Plan Assessment: Patient is an 82-year-old male with significant past medical history of osteoporosis(T-score value of -2.9 in the femoral neck), atrial fibrillation s/p pacemaker on pradaxa, hypertension, hyperlipidemia, presbycusis, Severe chronic right-sided hydronephrosis s/p ureteral stent( 4 weeks ago), mouth/tongue cancer , presented with an episode of fall. #Right femoral fracture after fall with a history of osteoporosis - * Continue telemetry monitoring no overnight events * EKG and troponins negative * Patient is going to OR for ORIF with Dr Samayoa * Cleared by cardiology, echo pending (he results of this test are not needed for cardiac clearance) * Pradaxa on hold * PT/OT evaluation today # Severe chronic right-sided hydronephrosis s/p ureteral stent( 4 weeks ago) * Curtesy call to Dr. Chinchilla #Chronic medical conditions hypertension, hyperlipidemia, continue home medication of amlodipine lisinopril and atorvastatin #Diet -NPO in anticipation of procedure #DVT prophylaxis will see him Pradaxa postprocedure #CODE STATUS- full code Problem List: 1. Hip fracture requiring operative repair Pain Ratin Pain Location: R hip Pain Goal: Pain 4 or less Pain Plan: prn Tomorrow's Labs & Rationales: cbc bep inr
[2017-10-19 08:16] LABS: PT 13.2 SEC (9.4-12.5); PTT 24 SEC (25-37)
[2017-10-19 08:31] LABS: HEMATOCRIT 20.4 % (42-52)
--- NOTE | 2017-10-19 13:33 | CT SCAN REPORT ---
EXAMINATION: CT PELVIS WITHOUT CONTRAST CLINICAL INFORMATION: Recent pain, fall and fracture. COMPARISON: Radiographs of the pelvis and hip from 10/18/2017. TECHNIQUE: Noncontrast multidetector CT imaging examination of the pelvis and hips was performed. The axial images are presented at 0.625 mm and 2.5 mm slice thickness. Multiplanar reformatted images were generated and reviewed. DLP: 1191 mGy-cm FINDINGS: Bones are diffusely osteoporotic. Degenerative disc disease and facet osteophytosis of L4-L5 and L5-S1. There is ligamentous fusion of the anterior and superior right sacroiliac joint. No pelvic bone fracture. Moderate osteoarthritis of bilateral femoroacetabular joints. Acute, comminuted fracture through the intertrochanteric region of the proximal right femur with trochanteric, femoral shaft and femoral head-neck fragments remaining in near-anatomic position. The proximal left femur is intact. Small amount of hyperdense hemorrhage deep to the iliotibial band. Diffuse edema within soft tissues around the fractured proximal right femur. There is edema within subcutaneous tissues overlying both hips. Diverticulosis of sigmoid colon without diverticulitis. Left ureteral catheter is partially included in the [id number]; the distal loop of the stent is located within the urinary bladder. No pelvic free fluid. Prostate gland is mildly enlarged. There is mild protrusion of fat into each inguinal canal. IMPRESSION: 1. Acute, comminuted fractures through the intertrochanteric region of the proximal right femur. The bone fragments are in near-anatomic position. 2. Moderate osteoarthritis of the hips.
[2017-10-19 16:11] VITALS: BP 140/70
[2017-10-19 16:49] LABS: ABSOLUTE BASOPHIL COUNT 0.1 /CUMM (0.0-0.2); ABSOLUTE EOSINOPHIL COUNT 0 /CUMM (0.0-0.7); ABSOLUTE GRANULOCYTE CT 5.4 /CUMM (1.4-6.5); ABSOLUTE LYMPH COUNT 1.2 /CUMM (1.2-3.4); BASOPHIL % 0.8 % (0.0-2.0); EOSINOPHIL % 0.5 % (0-5); GRANULOCYTE % 70.2 % (42.2-75.2); MEAN CORPUSCULAR HGB 29.7 PG (27.0-31.0); MEAN CORPUSCULAR HGB CONC 33.7 G/DL (33.0-37.0); MEAN CORPUSCULAR VOLUME 88.2 FL (80.0-94.0); MEAN PLATELET VOLUME 7.4 FL (7.4-10.4); PLATELET COUNT 199 /CUMM (130-400); RBC DISTRIBUTION WIDTH 15.4 % (11.5-14.5); WHITE BLOOD CELL COUNT 7.7 /CUMM (4.8-10.8)
[2017-10-19 16:52] LABS: HEMATOCRIT 26.4 % (42-52); RED BLOOD CELL CT 2.99 /CUMM (4.70-6.10)
--- NOTE | 2017-10-19 18:11 | Cons- Urology ---
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 Allergies/Medications Allergies: Coded Allergies: NO KNOWN ALLERGIES (NONE 09/13/17) Home Med List: Amlodipine Besylate (Norvasc) 5 MG TABLET 1 TAB PO DAILY HEART (Reported) Calcium (Elemental-Fr Calcarb) (Calcium Carbonate) 600 MG CALCIUM (1,500 MG) TABLET 1 TAB PO BID SUPPLEMENT (Reported) Cholecalciferol (Vitamin D3) 1,000 UNIT TABLET 1 TAB PO DAILY VITAMIN SUPPORT (Reported) Cyanocobalamin (Vitamin B-12) 1,000 MCG TABLET 1 TAB PO DAILY VITAMIN SUPPORT (Reported) Dabigatran Etexilate Mesylate (Pradaxa 150 MG) 150 MG CAPSULE 1 CAP PO BID BLOOD THINNER (Reported) Docusate Sodium 100 MG CAPSULE 1 TAB PO DAILY NEEDED PRN CONSTIPATION Lidocaine (Lidoderm) 5 % ADH..PATCH 1 PAT EXT DAILY PAIN Lisinopril 20 MG TABLET 1 TAB PO DAILY HEART (Reported) Lima-3S/Dha/Epa/Fish Oil ([place]ima-3 Fish Oil 1,000 MG Sfgl) 300-1,000MG CAPSULE 1 CAP PO QPM SUPPLEMENT (Reported) Oxycodone HCl/Acetaminophen (Percocet 5-325 MG Tablet) 5 MG-325 MG TABLET 1-2 TAB PO Q4P PRN PAIN mild to moderate Polyethylene Glycol 3350 (Miralax) 17 GRAM/DOSE POWDER 17 GM PO DAILY constipation mix with water, juice, soda, coffee or tea Simvastatin (Zocor*) 20 MG TABLET 1 TAB PO QPM CHOLESTEROL (Reported) Current Medications: Current Medications Sig/Yanna Start time Last Medication Dose Route Stop Time Status Admin Acetaminophen 1,000 MG Q6P PRN 10/18 1545 AC N/A 1 UNIT IV Amlodipine Besylate 5 MG DAILY 10/19 1000 AC 10/19 PO 1010 Atorvastatin Calcium 20 MG 1700 10/18 1700 AC 10/19 PO 1625 Cholecalciferol 1,000 IU DAILY 10/19 1000 AC 10/19 PO 1010 Docusate Sodium 100 MG DAILY NEEDED PRN 10/18 1830 AC PO Lidocaine 1 PAT DAILY 10/18 1915 AC 10/19 EXT 1011 Lisinopril 20 MG DAILY 10/19 1000 AC 10/19 PO 1011 Morphine Sulfate 1 MG ONCE ONE 10/18 1915 DC 10/18 IV 10/18 191 1930 Morphine Sulfate 1 MG Q6P PRN 10/18 1545 AC 10/19 IV 0219 Oxycodone/ 1 TAB Q6P PRN 10/18 1915 AC 10/19 Acetaminophen PO 0755 Polyethylene Glycol 17 GM DAILY 10/18 1829 AC PO Senna 187 MG AT BEDTIME 10/18 2200 AC PO Sodium Chloride 1,000 ML Q20H 10/19 0000 AC 10/19 IV 0221 Sodium Chloride 1,000 ML ONCE ONE 10/18 1130 DC 10/18 IV 10/19 0049 1143 Past History Medical History Blood Transfusion Hx: No Neurological: NONE EENT: hearing loss Cardiovascular: AFIB, hypertension, hyperlipidemia Respiratory: NONE Gastrointestinal: NONE Hepatic: NONE Renal: kidney stones Musculoskeletal: NONE Psychiatric: NONE Endocrine: NONE Blood Disorders: NONE Cancer(s): MOUTH/TONGUE CANCER Surgical History Pertinent Surgical History: LYMPH NODES Pacemaker Lithotripsy with stent placement Psychosocial History Where Do You Live? 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 EENTM: Reports: hearing changes. Cardiovascular: Denies: no symptoms. Respiratory: Denies: no symptoms. GI: Denies: no symptoms. Genitourinary: Reports: hematuria. Musculoskeletal: Reports: see HPI. Skin: Denies: no symptoms. Exam & Diagnostic Data Vital Signs and I&O Vital Signs Date Time Temp Pulse Resp B/P B/P Pulse O2 O2 Flow FiO2 Mean Ox Delivery Rate 10/19 1611 98.6 60 16 140/70 96 Room Air 10/19 1213 Room Air 10/19 1011 62 104/56 10/19 1010 62 104/56 10/19 0741 98.6 59 18 130/60 96 Room Air 12/25 2243 98.6 60 18 128/64 98 Room Air Intake & Output 10/19 0800 10/19 0000 10/18 1600 10/18 0800 10/18 0000 Intake Total 1200 400 500 0 Output Total 150 350 Balance 1200 250 150 0 Intake, IV 1200 400 250 Intake, Oral 0 250 0 Number 0 Bowel Movements Output, Urine 150 350 Patient 173 lb 165 lb Weight Weight Reported by Patient Estimated Measurement Method Physical Exam General Appearance: well developed/nourished, no apparent distress Head: atraumatic Eyes: Bilateral: normal appearance. Neck: normal inspection Respiratory: normal breath sounds Cardiovascular: regular rate/rhythm Gastrointestinal: normal bowel sounds, soft, non-tender Back: no vertebral tenderness Reproductive: Normal male genitalia Last 24 Hours of Labs: Laboratory Tests 10/19 10/19 1600 0611 Chemistry Sodium (137 - 145 mmol/L) 143 Potassium (3.5 - 5.1 mmol/L) 4.2 Chloride (98 - 107 mmol/L) 111 H Carbon Dioxide (22 - 30 mmol/L) 25 Anion Gap (5 - 16) 7 BUN (9 - 20 mg/dL) 23 H Creatinine (0.7 - 1.2 mg/dL) 1.1 Estimated GFR (>60 ml/min) > 60 BUN/Creatinine Ratio (7 - 25 %) 20.9 Coagulation PT (9.4 - 12.5 SEC) 13.2 H INR (0.90 - 1.17) 1.26 H APTT (25 - 37 SEC) 24 L Hematology CBC w Diff NO MAN DIFF REQ NO MAN DIFF REQ WBC (4.8 - 10.8 /CUMM) 7.7 6.8 RBC (4.70 - 6.10 /CUMM) 2.99 L 2.30 L Hgb (14.0 - 18.0 G/DL) 8.9 L 6.9 *L Hct (42 - 52 %) 26.4 L 20.4 L MCV (80.0 - 94.0 FL) 88.2 88.8 MCH (27.0 - 31.0 PG) 29.7 30.2 RDW (11.5 - 14.5 %) 15.4 H 16.3 H Plt Count (130 - 400 /CUMM) 199 227 MPV (7.4 - 10.4 FL) 7.4 8.0 Gran % (42.2 - 75.2 %) 70.2 65.5 Lymphocytes % (20.5 - 51.1 %) 16.1 L 19.7 L Monocytes % (1.7 - 9.3 %) 12.4 H 13.0 H Eosinophils % (0 - 5 %) 0.5 1.1 Basophils % (0.0 - 2.0 %) 0.8 0.7 Absolute Granulocytes (1.4 - 6.5 /CUMM) 5.4 4.5 Absolute Lymphocytes (1.2 - 3.4 /CUMM) 1.2 1.3 Absolute Monocytes (0.10 - 0.60 /CUMM) 1.0 H 0.9 H Absolute Eosinophils (0.0 - 0.7 /CUMM) 0 0.1 Absolute Basophils (0.0 - 0.2 /CUMM) 0.1 0.1 PUBS MCHC (33.0 - 37.0 G/DL) 33.7 34.0 10/180 1945 Chemistry Troponin I (<0.11 ng/ml) 0.02 Urines Urinalysis LIGHT H Urine Color (YEL,AMB,STR) BLDY H Urine Clarity (CLEAR) TURBD H Urine pH (5.0 - 8.0) 6.0 Ur Specific [place] (1.001 - 1.035) 1.025 Urine Protein (NEG,<30 MG/DL) >=300 H Urine Ketones (NEG) NEG Urine Nitrite (NEG) NEG Urine Bilirubin (NEG) NEG Urine Urobilinogen (0.1 - 1.0 EU/dl) 0.2 Ur Leukocyte Esterase (NEG) NEG Ur Microscopic SEDIMENT EXAMINED Urine RBC (0 - 5 /HPF) PACKD H Urine WBC (0 - 2 /HPF) 10-15 H Ur Epithelial Cells (NONE,FEW) FEW Urine Bacteria (NEG/NONE) MANY H Urine Mucus (FEW,NONE) FEW Urine Hemoglobin (NEG) LARGE H Urine Glucose (N MG/DL) NEG Imaging Results: PATIENT: JOEY LAKE PRESENT AGE: 82 PATIENT ACCOUNT NO: [id number] : 36 LOCATION: 1NO ORDERING PHYSICIAN: Tyler CORRAL SERVICE DATE: 10/19/17- EXAM TYPE: CAT - CT PELVIS WO IV CONTRAST EXAMINATION: CT PELVIS WITHOUT CONTRAST CLINICAL INFORMATION: Recent pain, fall and fracture. COMPARISON: Radiographs of the pelvis and hip from 10/18/2017. TECHNIQUE: Noncontrast multidetector CT imaging examination of the pelvis and hips was performed. The axial images are presented at 0.625 mm and 2.5 mm slice thickness. Multiplanar reformatted images were generated and reviewed. DLP: 1191 mGy-cm FINDINGS: Bones are diffusely osteoporotic. Degenerative disc disease and facet osteophytosis of L4-L5 and L5-S1. There is ligamentous fusion of the anterior and superior right sacroiliac joint. No pelvic bone fracture. Moderate osteoarthritis of bilateral femoroacetabular joints. Acute, comminuted fracture through the intertrochanteric region of the proximal right femur with trochanteric, femoral shaft and femoral head-neck fragments remaining in near-anatomic position. The proximal left femur is intact. Small amount of hyperdense hemorrhage deep to the iliotibial band. Diffuse edema within soft tissues around the fractured proximal right femur. There is edema within subcutaneous tissues overlying both hips. Diverticulosis of sigmoid colon without diverticulitis. Left ureteral catheter is partially included in the [id number]; the distal loop of the stent is located within the urinary bladder. No pelvic free fluid. Prostate gland is mildly enlarged. There is mild protrusion of fat into each inguinal canal. IMPRESSION: 1. Acute, comminuted fractures through the intertrochanteric region of the proximal right femur. The bone fragments are in near-anatomic position. 2. Moderate osteoarthritis of the hips. PATIENT: JOEY LAKE PRESENT AGE: 82 PATIENT ACCOUNT NO: [id number] : 36 LOCATION: [facility] ORDERING PHYSICIAN: Alexandra CORRAL SERVICE DATE: 09/25/17 EXAM TYPE: CAT - CT ABD & PELVIS W IV CONTRAST EXAMINATION: CT ABDOMEN AND PELVIS WITH CONTRAST CLINICAL INFORMATION: 82-year-old man with left lower quadrant pain and bloody stool. COMPARISON: 09/07/[address] TECHNIQUE: Multidetector volumetric imaging was performed of the abdomen and pelvis following IV administration of 95 mL of Optiray 320 intravenous contrast. Sagittal and coronal reformatted images were obtained on the technologist's workstation. DLP: 404 mGy-cm FINDINGS: Minimal atelectatic changes are noted at the left lung base along with some subtle segmental scarring or atelectasis in the lingula. There is a small sliding hiatal hernia. The liver, spleen, semi-atrophic pancreas, adrenals, and gallbladder are normal in appearance. The right kidney is again noted to be architectural atrophic with numerous calculi. There has been interval placement of a left sided double-J ureteral stent. Multiple nonobstructive calculi are again noted in the left kidney and there is mild left sided hydronephrosis that appears slightly worse than on the prior CT. There is massive new distention of the rectal vault with desiccated stool, now measuring nearly 10 cm in diameter. There is some thickening of the rectal wall and mild surrounding stranding of the perirectal fat, findings suggestive of new stercoral colitis. Aside from mild diverticulosis, nondilated large and small bowel loops are otherwise fairly unremarkable. The appendix and terminal ileum are not inflamed. The prostate and seminal vesicles, as well as the bladder are compressed by the massively distended rectum. There are otherwise stable in appearance however. Mild central concavity of numerous lower thoracic and lumbar endplates is unchanged and presumably degenerative. IMPRESSION: New massive distention of the rectal vault with mild wall thickening and stranding of the perirectal fat, suggesting early stercoral colitis. Interval placement of a left-sided double-J ureteral stent with slight possible worsening of previously noted left-sided hydronephrosis. Assessment/Plan Assessment/Plan left stone with stent: ESWL and stent removal delayed from today: Priority is fracture as discussed with Dr. Donis who will proceed with ortho surgery: ESWL and stent are elective and will be rescheduled when pt more stable. Copies To: Wes Chinchilla MD Consult Acknowledgment - Thank you for your consult request. Attending MD Review Statement Attending Statement Attending MD Statement: examined this patient, discuss w/resident/PA/TANK TENDER Attending Assessment/Plan: Ortho Fx takes priority: will reschedule stone/stent surgery in future when OK with med. and ortho. Nirav Kline 10/20/17 1420: General Information and HPI History of Present Illness: is 82 year-old man with Hx of osteoporosis, atrial fibrillation s/p pacemaker on pradaxa, hypertension, hyperlipidemia, Severe chronic right-sided hydronephrosis s/p left ureteral stent 17 Sep 2017, mouth/tongue cancer. Was admitted to the hospital status post fall that cause for him proximal right femur comminuted fracture. According to the primary team his stated that patient has hematuria for the past couple weeks. The patient taking his Pradaxa , that was held on Wednesday as preparation for his ortho surgery today. Patient currently in the OR for his ortho surgery. Assessment/Plan Assessment/Plan If it is okay with the medicine team and orthopedic team will take him to the OR tomorrow for stent removal and possible ESWL giving. Consult Acknowledgment - Thank you for your consult request.
[2017-10-19 22:05] VITALS: BP 104/56
[2017-10-20 05:20] VITALS: BP 126/68
--- NOTE | 2017-10-20 07:41 | PN- Housestaff ---
Rajinder JOYCE,Tomasa 10/20/17 0741: Subjective Follow-up For: Closed right intertrochanteric hip fracture Chronic right sided hydronephrosis s/p ureteral stent placement Tele-Events Since Last Visit: Paced rhythm with heart rate in the 50s and 60s Subjective: Patient seen and examined. He was lying in the bed. Patient is supposed to go to the OR today for ORIF around 1:30 PM. Patient was very upset yesterday because of the surgery not happening. Overnight no acute events. Offers no complaints Review of Systems Constitutional: Reports: see HPI. Objective Last 24 Hrs of Vital Signs/I&O Vital Signs Date Time Temp Pulse Resp B/P B/P Pulse O2 O2 Flow FiO2 Mean Ox Delivery Rate 10/20 0520 98.5 73 16 126/68 95 Room Air 10/19 2205 98.4 59 14 104/56 96 Room Air 10/19 1611 98.6 60 16 140/70 96 Room Air 10/19 1213 Room Air 10/19 1011 62 104/56 10/19 1010 62 104/56 Intake & Output 10/20 1600 10/20 0800 10/20 0000 Intake Total 400 100 Output Total 875 Balance -475 100 Intake, IV 400 Intake, Oral 0 100 Output, Urine 875 Physical Exam General Appearance: Alert, Oriented X3, Cooperative Cardiovascular: Normal S1, Normal S2 Lungs: CLEAR ANT LUNG HORN Neurological: Normal Speech Extremities: NO BRUISE AT HEAMTOMA AT FRAXCTURE SITE Current Medications: Current Medications Sig/Yanna Start time Last Medication Dose Route Stop Time Status Admin Acetaminophen 1,000 MG Q6P PRN 10/18 1545 AC N/A 1 UNIT IV Amlodipine Besylate 5 MG DAILY 10/19 1000 AC 10/19 PO 1010 Atorvastatin Calcium 20 MG 1700 10/18 1700 AC 10/19 PO 1625 Cholecalciferol 1,000 IU DAILY 10/19 1000 AC 10/19 PO 1010 Docusate Sodium 100 MG DAILY NEEDED PRN 10/18 1830 AC PO Lidocaine 1 PAT DAILY 10/18 1915 AC 10/19 EXT 1011 Lisinopril 20 MG DAILY 10/19 1000 AC 10/19 PO 1011 Morphine Sulfate 1 MG Q6P PRN 10/18 1545 AC 10/19 IV 0219 Oxycodone/ 1 TAB Q6P PRN 10/18 1915 AC 10/19 Acetaminophen PO 1845 Polyethylene Glycol 17 GM DAILY 10/18 1829 AC PO Senna 187 MG AT BEDTIME 10/18 2200 AC 10/19 PO 2031 Sodium Chloride 1,000 ML Q20H 10/19 0000 AC 10/20 IV 0025 Last 24 Hrs of Lab/Laron Results Last 24 Hrs of Labs/Mics: Laboratory Tests 10/20/17 0627: Sodium Pending, Potassium Pending, Chloride Pending, Carbon Dioxide Pending, Anion Gap Pending, BUN Pending, Creatinine Pending, BUN/Creatinine Ratio Pending , PT Pending, INR Pending, APTT Pending, CBC w Diff Pending, WBC Pending, RBC Pending, Hgb Pending, Hct Pending, MCV Pending, MCH Pending, RDW Pending, Plt Count Pending, MPV Pending, PUBS MCHC Pending 10/19/17 1600: CBC w Diff NO MAN DIFF REQ, RBC 2.99 L, MCV 88.2, MCH 29.7, RDW 15.4 H, MPV 7.4, Gran % 70.2, Lymphocytes % 16.1 L, Monocytes % 12.4 H, Eosinophils % 0.5, Basophils % 0.8, Absolute Granulocytes 5.4, Absolute Lymphocytes 1.2, Absolute Monocytes 1.0 H, Absolute Eosinophils 0, Absolute Basophils 0.1, PUBS MCHC 33.7 Assessment/Plan Assessment: Patient is an 82-year-old male with significant past medical history of osteoporosis(T-score value of -2.9 in the femoral neck), atrial fibrillation s/p pacemaker on pradaxa, hypertension, hyperlipidemia, presbycusis, Chronic left- sided hydronephrosis s/p ureteral stent( 4 weeks ago), mouth/tongue cancer, presented with an episode of fall. #Right intertrochanteric hip fracture after fall with a history of osteoporosis - * Continue telemetry monitoring no overnight events * EKG and troponins negative * Patient is going to OR for ORIF today with Dr. Ruiz * Cleared by cardiology, echo pending (he results of this test are not needed for cardiac clearance) * Pradaxa on hold * PT/OT evaluation after surgery, patient might require STR * Continue current regimen for pain control #Severe chronic left -sided hydronephrosis s/p ureteral stent(4 weeks ago) * Urology Dr. Chinchilla consulting, patient has gross hematuria which has been going on for past few weeks. * Patient was supposed to get ESWL and stent removal yesterday before the present events. * Dr. Chinchilla had discussion with Ortho. At this moment patient will undergo repair of the fracture and stone/stent surgery will be scheduled in future. #Acute blood loss anemia Patient dropped H&H yesterday 8.5 to 6.9/25 to 20 likely secondary to hip fracture complicated with hematuria * Patient is status 2 units blood transfusion * CT pelvis showed small amount of hyperdense hemorrhage deep to the iliotibial band, see report for more details * Monitor H&H #Chronic medical conditions hypertension, hyperlipidemia, continue home medication of amlodipine lisinopril and atorvastatin #Diet -NPO in anticipation of procedure #DVT prophylaxis S/C HEPARIN #CODE STATUS- full code Problem List: 1. Hip fracture requiring operative repair Pain Ratin Pain Location: R hip Pain Goal: Remain pain free Pain Plan: prn Tomorrow's Labs & Rationales: cbc bep Travis Osborne MD 10/20/17 1108: Attending MD Review Statement Attending Statement Attending MD Statement: examined this patient, discuss w/resident/PA/ANGLE BENDER, agreed w/resident/PA/ANGLE BENDER, reviewed EMR data (avail) Attending Assessment/Plan: 82M PMH osteoporosis, atrial fibrillation on Pradaxa, sick sinus syndrome s/p PPM HTN, HLD, severe chronic right-sided hydronephrosis s/p ureteral stent( 4 weeks ago), presenting with slipping on ice with right comminuted intertrochanteric closed hip fracture. Course complicated by recent hematuria and stopping of Pradaxa for ureteral stent removal planned for tomorrow, with acute blood loss anemia secondary to hip fracture. Patient is hard of hearing but has no complaints today and feels well. His pain is well controlled unless he tries to move. No telemetry events, exam benign other than right hip tenderness. 1. Closed right intertrochanteric hip fracture 2. Fall, initial 3. Acute blood loss anemia 4. Paroxysmal atrial fibrillation 5. Chronic right sided hydronephrosis s/p ureteral stent placement Plan - Continue on telemetry - Follow cardiology, orthopdic, urology recommendations - Monitor CBC - Will go to OR today for hip repair - Continue home medications, will continue to hold Pradaxa - SQH for DVT PPx for now - Continue current regimen for pain control
[2017-10-20 08:04] LABS: ABSOLUTE BASOPHIL COUNT 0 /CUMM (0.0-0.2); ABSOLUTE EOSINOPHIL COUNT 0 /CUMM (0.0-0.7); ABSOLUTE GRANULOCYTE CT 6.6 /CUMM (1.4-6.5); ABSOLUTE LYMPH COUNT 1.1 /CUMM (1.2-3.4); ABSOLUTE MONOCYTE COUNT 1.1 /CUMM (0.10-0.60); BASOPHIL % 0.4 % (0.0-2.0); EOSINOPHIL % 0.4 % (0-5); GRANULOCYTE % 74.9 % (42.2-75.2); HEMATOCRIT 25.6 % (42-52); MEAN CORPUSCULAR HGB 29.7 PG (27.0-31.0); MEAN CORPUSCULAR HGB CONC 33.5 G/DL (33.0-37.0); MEAN CORPUSCULAR VOLUME 88.8 FL (80.0-94.0); MEAN PLATELET VOLUME 7.9 FL (7.4-10.4); PLATELET COUNT 186 /CUMM (130-400); RBC DISTRIBUTION WIDTH 15.1 % (11.5-14.5); RED BLOOD CELL CT 2.89 /CUMM (4.70-6.10); WHITE BLOOD CELL COUNT 8.8 /CUMM (4.8-10.8)
[2017-10-20 08:23] LABS: PT 13.1 SEC (9.4-12.5); PTT 24 SEC (25-37)
--- NOTE | 2017-10-20 14:09 | Discharge Summary ---
Visit Information Visit Dates Admission Date: 10/18/17 Discharge Date: 10/23/2017 Hospital Course Course Attending Physician: Travis Osborne MD Primary Care Physician: Luke Jaquez MD Hospital Course: Patient is an 82-year-old male with multiple medical problems presented after an episode of fall leading to right femoral intertrochanteric fracture. ED course -vital signs at the time of admission -temperature 97.7, pulse 94, respiratory 16, blood pressure 177/65, SPO2 98% on room air.Blood workup showed hemoglobin 8.5, hematocrit 25.6, platelet count 254, granulocyte 81.5, lymphocyte 9.8, sodium 142, potassium 4, chloride 112, BUN 26, creatinine 1.1, glucose 114, albumin 3.1, troponin 0.02, PT/INR 12.4/1.18.X-ray - showed a small right femoral fracture, involve the basicervical and intratrochanteric regions. Orthopedic consult was done and advised for surgery. Patient was transferred to telemetry floor for further cardiology evaluation and management. Comminuted Intertrochanteric fracture secondary to fall - ORIF done on 2016 Patient admitted to the telemetry floor. We continued to hold Pradaxa.Cardiology cleared him for surgery. In first 24 hours, he dropped his hemoglobin from 8.5 to 6.9. We transfused 2 units of blood. Afterward his hemoglobin come back to 8.6 and he underwent ORIF on 10/20/2017. Postop hemoglobin was 7.7. Hb at time of discharge was 8.1. Chronic left-sided hydronephrosis status post stent placement and removal - Patient was having gross hematuria at the time of admission. We holded anticoagulant. We took opinion of Dr. Chinchilla, who removed the stent on 2016. We advised to watch for hematuria and follow-up with Dr. Chinchilla within a week of discharge. Atrial fibrillation, now in normal sinus rhythm, currenlty on Pradaxa - Advised to continue Pradaxa as previously and follow-up with cryptologic technician within 1-2 weeks after discharge. Allergies: Coded Allergies: NO KNOWN ALLERGIES (NONE 09/13/17) Disposition Summary Disposition Principal Diagnosis: Comminuted Intertrochanteric fracture secondary to fall - ORIF done on 2016 Additional Diagnosis: Junctional rhythum, on pradaxa Permanent pacemaker for sick sinus syndrome Osteoporosis Moderate osteoarthritis of the hip Hypertension Dyslipidemia Chronic left-sided hydronephrosis s/p ureteral stent removal Mouth/tongue cancer Discharge Disposition: SNF Discharge Instructions General Discharge Information Code Status: Full Code Patient's Diet: Heart healthy diet Patient's Activity: As tolerated Follow-Up Instructions/Appts: Please follow-up with PCP within a week of discharge Please follow-up with cryptologic technician within a week of discharge Please watch for bleeding Please follow-up with your urologist for further management of hydronephrosis Medications at Discharge Discharge Medications: Continue taking these medications: Lisinopril (Lisinopril) 20 MG TABLET 1 Tablet ORAL DAILY Comments: LAST GIVEN 10/23/17 @ 0800 Amlodipine Besylate (Norvasc) 5 MG TABLET 1 Tablet ORAL DAILY Dabigatran Etexilate Mesylate (Pradaxa 150 MG) 150 MG CAPSULE 1 Capsule ORAL TWICE DAILY Simvastatin (Zocor*) 20 MG TABLET 1 Tablet ORAL Every night Shelley-3S/Dha/Epa/Fish Oil (Shelley-3 Fish Oil 1,000 MG Sfgl) 300-1,000MG CAPSULE 1 Capsule ORAL Every night Cyanocobalamin (Vitamin B-12) 1,000 MCG TABLET 1 Tablet ORAL DAILY Calcium (Elemental-Fr Calcarb) (Calcium Carbonate) 600 MG CALCIUM (1,500 MG) TABLET 1 Tablet ORAL TWICE DAILY Cholecalciferol (Vitamin D3) 1,000 UNIT TABLET 1 Tablet ORAL DAILY Polyethylene Glycol 3350 (Miralax) 17 GRAM/DOSE POWDER 17 Gram ORAL DAILY Qty = 527 Instructions: mix with water, juice, soda, coffee or tea Start taking the following new medications: Oxycodone HCl/Acetaminophen (Percocet 5-325 MG Tablet) 5 MG-325 MG TABLET 1 Tablet ORAL EVERY 4 HOURS NEEDED as needed for PAIN SCALE 4-6 (MODERATE ) Qty = 30 No Refills Docusate Sodium (Docusate Sodium) 100 MG CAPSULE 1 Tablet ORAL DAILY NEEDED as needed for CONSTIPATION Qty = 30 No Refills Lidocaine (Lidoderm) 5 % ADH..PATCH 1 Patch ON SKIN DAILY Qty = 30 No Refills Oxycodone HCl/Acetaminophen (Percocet 5-325 MG Tablet) 5 MG-325 MG TABLET 2 Tablet ORAL Every 6-8 Hours as needed for PAIN SCALE 7-10 (SEVERE) Qty = 20 No Refills Acetaminophen (Tylenol Extra Strength) 500 MG TABLET 1 Tablet ORAL EVERY 4 HOURS NEEDED as needed for PAIN SCALE 1-3 (MILD) Qty = 20 No Refills Copies To: Sam Holland MD; Wes Chinchilla MD; Phan JOYCE PHD,Dysart SCookie; Leonid JOYCE,Luke Bethea Attending Review Statement Documenting Attending: Travis Osborne MD No Refills Acetaminophen (Tylenol Extra Strength) 500 MG TABLET 1 Tablet ORAL EVERY 4 HOURS NEEDED as needed for PAIN SCALE 1-3 (MILD) Qty = 20 No Refills Copies To: Sam Holland MD; Wes Chinchilla MD; Phan JOYCE PHD,Dysart SCookie; Leonid JOYCE,Luke Luque MD Review Statement Documenting Attending: Travis Osborne MD
--- NOTE | 2017-10-20 14:49 | Operative Report ---
Operative/Inv Procedure Report Surgery Date: 10/20/17 Name of Procedure: Intramedullary nail right hip Pre-Operative Diagnosis: Right hip intertrochanteric fracture Post-Operative Diagnosis: Same Estimated Blood Loss: less than 50ml Surgeon/Population Geneticist: KRISTAN Anesthesia: laryngeal mask airway IV Fluids: See anesthesia record Implants: Dusty gamma nail, short Drains: None Specimens: None Complications: None Condition: Stable Operative Indication: Patient's an 82-year-old male who had a mechanical fall and sustained a right intertrochanteric hip fracture. He is cleared by the medical service and indicated for surgical fixation. The risks and benefits were discussed with the patient and his family in detail. Operative/Procedure Note Note: Once informed consent consent was obtained the patient brought to operating room placed on the fracture table. After initiation of general endotracheal anesthesia fracture reduced reduction was performed under C-arm fluoroscopy. AP and lateral views confirm fracture reduction of the hip fracture. The right lower extremity was prepped and draped in usual sterile fashion. To begin the procedure a guidewire was placed to the tip of the greater trochanter for entry point. The guidewire and position was confirmed in AP and lateral planes. The guidewire was advanced past the fracture site into the femoral canal. Proximal reamer was then used over the guidewire to open up the proximal femoral portion of the fracture. Once this was done a Gamma short nail was assembled on the jig for 125 neck angle 11 mm in diameter. The nail was placed down the canal across the fracture site without complication. Position was confirmed in AP and lateral planes. Next a guidewire for the lag screw was placed from lateral femur. Guidewire position was center center in the AP and lateral position. Guidewire was measured 105 mm for the lag screw and the 105 mm was reamed with the triple reamer. The lag screw was placed over the guidewire across the nail and fracture site without complication. Set screw was then used to lock the lag screw in place through the nail. The jig was disassembled for the placement of the lag screw and then the jig for the locking screw distally was placed through the nail. A 40 mm screw was placed through the distal aspect of the nail in the dynamic hole without complication. The jig was disassembled and taken off the nail and final AP and lateral images confirmed excellent reduction of the fracture and placement of the nail. The incisions were irrigated and closed in layers. The skin was closed marcelo and sterile dressing was applied. Patient was awakened taken recovery in stable condition.
--- NOTE | 2017-10-20 15:23 | RADIOLOGY REPORT ---
EXAMINATION: Intraoperative fluoroscopy CLINICAL INFORMATION: Right hip ORIF COMPARISON: Pelvic CT 10/19/2017 TECHNIQUE: Intraoperative fluoroscopy was provided for use by Dr. Almanza. A total of 6 images were saved to PACS. TOTAL FLUOROSCOPIC TIME: 1.1 FINDINGS\E\IMPRESSION: Intraoperative fluoroscopy provided for use by Dr. Almanza. Please see operative note for detailed findings.
[2017-10-20 18:00] VITALS: BP 148/64
[2017-10-20 18:58] LABS: ABSOLUTE BASOPHIL COUNT 0 /CUMM (0.0-0.2); ABSOLUTE EOSINOPHIL COUNT 0 /CUMM (0.0-0.7); ABSOLUTE GRANULOCYTE CT 7.8 /CUMM (1.4-6.5); ABSOLUTE LYMPH COUNT 0.3 /CUMM (1.2-3.4); ABSOLUTE MONOCYTE COUNT 0.4 /CUMM (0.10-0.60); BASOPHIL % 0.1 % (0.0-2.0); EOSINOPHIL % 0 % (0-5); HEMATOCRIT 26.1 % (42-52); MEAN CORPUSCULAR HGB 30.2 PG (27.0-31.0); MEAN CORPUSCULAR HGB CONC 33.7 G/DL (33.0-37.0); MEAN CORPUSCULAR VOLUME 89.5 FL (80.0-94.0); MEAN PLATELET VOLUME 7.7 FL (7.4-10.4); PLATELET COUNT 189 /CUMM (130-400); RBC DISTRIBUTION WIDTH 15.4 % (11.5-14.5); RED BLOOD CELL CT 2.91 /CUMM (4.70-6.10); WHITE BLOOD CELL COUNT 8.4 /CUMM (4.8-10.8)
[2017-10-20 19:17] LABS: GRANULOCYTE % 92.2 % (42.2-75.2)
--- NOTE | 2017-10-20 20:06 | PN- Cardiology ---
Subjective Subjective: * Patient is doing well post procedure without chest discomfort or shortness of breath. Objective Vital Signs and I&Os Vital Signs Date Time Temp Pulse Resp B/P B/P Pulse O2 O2 Flow FiO2 Mean Ox Delivery Rate 10/20 912 128/64 10/20 09 128/64 10/20 0520 98.5 73 16 126/68 95 Room Air 10/19 2205 98.4 59 14 104/56 96 Room Air Intake & Output 10/20 1600 10/20 0800 10/20 0000 10/19 1600 10/19 0800 10/19 0000 Intake Total 450 947 097 6829 400 500 Output Total 400 875 150 350 Balance 50 -198 456 9250 250 150 Intake, IV 202 789 7763 400 250 Intake, Oral 100 0 100 0 250 Number 0 Bowel Movements Output, Urine 400 875 150 350 Patient 173 lb Weight Weight Reported by Patient Measurement Method Physical Exam: General: WD/WN male in NAD; alert and oriented x 3 Neck: no JVD, no carotid bruit Heart: RRR with 2/6 systolic murmur Lungs: clear bilaterally Extremities: no edema Assessment/Plan Assessment/Plan * This patient is only mildly active but has no history of myocardial ischemia, congestive heart failure or decreased EF. He has a permanent pacemaker. The patient should restart anticoagulation at this point in time. Continue telemetry? No
[2017-10-21 06:00] VITALS: BP 138/66
--- NOTE | 2017-10-21 07:33 | PN- Housestaff ---
Rajinder JOYCE,[facility] 10/21/17 0732: Subjective Follow-up For: Closed right intertrochanteric hip fracture Chronic left sided hydronephrosis s/p ureteral stent placement Tele-Events Since Last Visit: Paced rhythm heart rate in 50s Subjective: I seen and examined the patient. The patient was lying in the bed. Complaining of leg pain. He says that he is not happy to be here. Denies chest pain and shortness of breath or chills. Continues to have hematuria. Patient underwent a ORIF yesterday without any complications. Patient is scheduled to go for renal stent removal today Review of Systems Constitutional: Reports: see HPI. Objective Last 24 Hrs of Vital Signs/I&O Vital Signs Date Time Temp Pulse Resp B/P B/P Pulse O2 O2 Flow FiO2 Mean Ox Delivery Rate 10/21 0600 97.8 67 20 138/66 98 10/20 1800 98.1 66 14 148/64 93 Room Air 10/20 0912 128/64 10/20 0912 128/64 Intake & Output 10/21 1600 10/21 0800 10/21 0000 Intake Total 0 200 Output Total 200 Balance -200 200 Intake, Oral 0 200 Number 1 Bowel Movements Output, Urine 200 Physical Exam General Appearance: Alert, Oriented X3, Cooperative Cardiovascular: Normal S1, Normal S2 Lungs: Clear to Auscultation Abdomen: Normal Bowel Sounds Current Medications: Current Medications Sig/Yanna Start time Last Medication Dose Route Stop Time Status Admin Acetaminophen 1,000 MG Q6P PRN 10/18 1545 AC 10/21 N/A 1 UNIT IV 0432 Amlodipine Besylate 5 MG DAILY 10/19 1000 AC 10/20 PO 0912 Apixaban 2.5 MG BID 10/21 2200 CAN PO Apixaban 2.5 MG BID 10/21 1000 DC PO Atorvastatin Calcium 20 MG 1700 10/18 1700 AC 10/20 PO 1657 Cholecalciferol 1,000 IU DAILY 10/19 1000 AC 10/20 PO 0912 Dabigatran 150 MG BID 10/210 AC PO Docusate Sodium 100 MG .STK-MED ONE 10/20 2133 DC PO 10/20 213 Docusate Sodium 100 MG DAILY NEEDED PRN 10/18 1830 AC 10/20 PO 2136 Lidocaine 1 PAT DAILY 10/18 1915 AC 10/19 EXT 1011 Lisinopril 20 MG DAILY 10/19 1000 AC 10/20 PO 0912 Morphine Sulfate 1 MG Q6P PRN 10/18 1545 AC 10/19 IV 0219 Oxycodone/ 1 TAB Q6P PRN 10/18 1915 10/20 Acetaminophen PO 1132 Polyethylene Glycol 17 GM DAILY 10/18 1829 AC 10/20 PO 0911 Senna 187 MG AT BEDTIME 10/18 2200 AC 10/20 PO 2135 Sodium Chloride 1,000 ML Q20H 10/19 0000 DC 10/20 IV 0025 Vancomycin HCl 1,000 MG Q12 10/20 2200 AC 10/20 Sodium Chloride 250 ML IV 10/21 1059 2219 Last 24 Hrs of Lab/Laron Results Last 24 Hrs of Labs/Mics: Laboratory Tests 10/21/17 0619: Sodium Pending, Potassium Pending, Chloride Pending, Carbon Dioxide Pending, Anion Gap Pending, BUN Pending, Creatinine Pending, BUN/Creatinine Ratio Pending , CBC w Diff Pending, WBC Pending, RBC Pending, Hgb Pending, Hct Pending, MCV Pending, MCH Pending, RDW Pending, Plt Count Pending, MPV Pending, PUBS MCHC Pending 10/20/17 1806: CBC w Diff NO MAN DIFF REQ, RBC 2.91 L, MCV 89.5, MCH 30.2, RDW 15.4 H, MPV 7.7, Gran % 92.2 H, Lymphocytes % 3.2 L, Monocytes % 4.5, Eosinophils % 0, Basophils % 0.1, Absolute Granulocytes 7.8 H, Absolute Lymphocytes 0.3 L, Absolute Monocytes 0.4, Absolute Eosinophils 0, Absolute Basophils 0, PUBS MCHC 33.7 Assessment/Plan Assessment: Patient is an 82-year-old male with significant past medical history of osteoporosis(T-score value of -2.9 in the femoral neck), atrial fibrillation s/p pacemaker on pradaxa, hypertension, hyperlipidemia, presbycusis, Chronic left- sided hydronephrosis s/p ureteral stent (4 weeks ago), mouth/tongue cancer, presented with an episode of fall. #Right intertrochanteric hip fracture s/p ORIF day 1 * Continue telemetry monitoring no overnight events * Patient underwent ORIF yesterday without any complications. * Pradaxa on hold, cardiology wants to restart the anticoagulation, but patient is going for renal stent removal today. * PT/OT evaluation after surgery, patient might require STR * Continue current regimen for pain control #Severe chronic left -sided hydronephrosis s/p ureteral stent Urology Dr. Chinchilla consulting, patient has gross hematuria which has been going on for past few weeks. Patient was supposed to get ESWL and stent removal on before the present events. * Patient is going to OR with Dr. Chinchilla for removal of renal stent today. * Cleared by cardiology, echo pending (results are not needed for cardiac clearance) * We will restart anticoagulation after the procedure. #Acute blood loss anemia s/p 2 units blood transfusion Patient dropped H&H on 10/19 from 8.5 to 6.9/25 to 20 likely secondary to hip fracture complicated with hematuria * CT pelvis showed small amount of hyperdense hemorrhage deep to the iliotibial band, see report for more details * Monitor H&H #Chronic medical conditions hypertension, hyperlipidemia, continue home medication of amlodipine lisinopril and atorvastatin #Diet -NPO in anticipation of procedure #DVT prophylaxis S/C HEPARIN #CODE STATUS- full code Problem List: 1. Hip fracture requiring operative repair 2. Nephrolithiasis Pain Ratin Pain Location: R hip Pain Goal: Remain pain free Pain Plan: prn Tomorrow's Labs & Rationales: cbc bep Travis Osborne MD 10/21/17 1037: Attending Review Statement Attending Statement Attending MD Statement: examined this patient, discuss w/resident/PA/CONSULTING SERVICES PROJECT MANAGER, agreed w/resident/PA/CONSULTING SERVICES PROJECT MANAGER, reviewed EMR data (avail) Attending Assessment/Plan: 82M PMH osteoporosis, atrial fibrillation on Pradaxa, sick sinus syndrome s/p PPM HTN, HLD, severe chronic right-sided hydronephrosis s/p ureteral stent( 4 weeks ago), presenting with slipping on ice with right comminuted intertrochanteric closed hip fracture. Course complicated by recent hematuria and stopping of Pradaxa for ureteral stent removal that had been planned as outpatient, with acute blood loss anemia secondary to hip fracture. Underwent surgical repair successfully on 10/20. Patient has no complaints today and feels well. His pain is well controlled unless he tries to move. No telemetry events, exam benign. 1. Closed right intertrochanteric hip fracture 2. Fall, initial 3. Acute blood loss anemia 4. Paroxysmal atrial fibrillation 5. Chronic right sided hydronephrosis s/p ureteral stent placement Plan - Discontinue telemetry - Will go for ureteral stent placement today - Follow cardiology, orthopdic, urology recommendations - Monitor CBC - Continue home medications - Restart Pradaxa - Continue current regimen for pain control - Pending stable Hgb and PT eval, can possibly be discharged tomorrow
[2017-10-21 08:35] LABS: ABSOLUTE BASOPHIL COUNT 0 /CUMM (0.0-0.2); ABSOLUTE EOSINOPHIL COUNT 0 /CUMM (0.0-0.7); ABSOLUTE GRANULOCYTE CT 7.4 /CUMM (1.4-6.5); ABSOLUTE LYMPH COUNT 0.8 /CUMM (1.2-3.4); ABSOLUTE MONOCYTE COUNT 1.2 /CUMM (0.10-0.60); BASOPHIL % 0 % (0.0-2.0); EOSINOPHIL % 0.1 % (0-5); GRANULOCYTE % 78.5 % (42.2-75.2); HEMATOCRIT 23.4 % (42-52); MEAN CORPUSCULAR HGB 30.1 PG (27.0-31.0); MEAN CORPUSCULAR HGB CONC 33.8 G/DL (33.0-37.0); MEAN CORPUSCULAR VOLUME 89.1 FL (80.0-94.0); MEAN PLATELET VOLUME 8.2 FL (7.4-10.4); PLATELET COUNT 173 /CUMM (130-400); RBC DISTRIBUTION WIDTH 15.7 % (11.5-14.5); RED BLOOD CELL CT 2.63 /CUMM (4.70-6.10); WHITE BLOOD CELL COUNT 9.5 /CUMM (4.8-10.8)
--- NOTE | 2017-10-21 11:44 | PN- Orthopedic ---
Subjective Subjective: No acute overnight events reported. Has pain but is tolerating it. Denies chest pain, shortness of breath and difficulty breathing. Denies nausea and vomitting. Has yet to ambulate. Is presently in holding area pre-operatively for urology procedure with Dr. Chinchilla. Objective Vital Signs and I&Os Vital Signs Date Time Temp Pulse Resp B/P B/P Pulse O2 O2 Flow FiO2 Mean Ox Delivery Rate 10/21 1233 Room Air 10/21 0841 140/70 10/21 0841 140/70 10/21 0600 97.8 67 20 138/66 98 10/20 1800 98.1 66 14 148/64 93 Room Air Intake & Output 10/21 1600 10/21 0800 10/21 0000 10/20 1600 10/20 0800 10/20 0000 Intake Total 0 200 450 400 100 Output Total 200 400 875 Balance -200 200 50 -475 100 Intake, IV 350 400 Intake, Oral 0 200 100 0 100 Number 1 Bowel Movements Output, Urine 200 400 875 Physical Exam: General: Alert and oriented x3, no acute distress Nonlabored respiratory effort Extremities: Moves all extremities, distal sensation intact. Skin warm and well perfused. DP pulses palpable bilaterally. No resting internal or external rotation of right leg. Dressing dry and intact. Thigh compartment soft. Bilateral calves soft and non-tender. Assessment/Plan Assessment/Plan Patient is an 82-year-old male with significant past medical history of osteoporosis(T-score value of -2.9 in the femoral neck), atrial fibrillation s/p pacemaker on pradaxa, hypertension, hyperlipidemia, presbycusis, Chronic left- sided hydronephrosis s/p ureteral stent (4 weeks ago), mouth/tongue cancer, presented with an episode of fall and underwent and ORIF right intertroch one day ago -Hold xarelto for urologic procedure happening today -Activity: WBAT -Dressing: To be changed POD 2 -Continue current pain regimen Discussed with Dr. Almanza
[2017-10-21] MEDS ORDERED: LIDODERM1 EACH EXT (14:09)
[2017-10-21] MEDS ORDERED: DOCUSATE SODIU100 M3 PO (14:09)
[2017-10-21] MEDS ORDERED: PERCOCET 5-3251 EACH PO (14:11)
--- NOTE | 2017-10-21 14:13 | Patient Discharge Instructions ---
Discharge Instructions General Discharge Information You were seen/treated for: Intertrochanteric fracture secondary to fall Hematuria secondary to left-sided renal stent for chronic left-sided hydronephrosis You had these procedures: ORIF on 10/20 Renal stent removal Watch for these problems: Fever, chills, excessive bleeding in the urine, shortness of breath, palpitations Bleeding from the surgical site. Expanding bruise or surgical site. Special Instructions: Please follow-up with Dr. Chinchilla within 1 week of discharge Please follow-up with surgery within 1 week of discharge Please follow-up with PCP within one week of discharge Diet Recommended Diet: Heart Healthy Activity Activity Self Limited: Yes Acute Coronary Syndrome Inclusion Criteria At DC or during hospital stay patient has or had the following: ACS DIAGNOSIS No Discharge Core Measures Meds if any: Prescribed or Continued at Discharge Meds if any: NOT Prescribed or Continued at Discharge Congestive Heart Failure Inclusion Criteria At DC or during hospital stay patient has or had the following: CHF DIAGNOSIS No Discharge Core Measures Meds if any: Prescribed or Continued at Discharge Meds if any: NOT Prescribed or Continued at Discharge Cerebrovascular accident Inclusion Criteria At DC or during hospital stay patient has or had the following: CVA/TIA Diagnosis No Discharge Core Measures Meds if any: Prescribed or Continued at Discharge Meds if any: NOT Prescribed or Continued at Discharge Venous thromboembolism Inclusion Criteria VTE Diagnosis No VTE Type NONE VTE Confirmed by (Test) NONE Discharge Core Measures - Per Current guidelines, there needs to be overlap - treatment for the first 5 days of Warfarin therapy. - If discharged on Warfarin prior to 5 days of - overlap therapy, the patient will need to be - assessed for post discharge needs including - *Post discharge parental anticoagulation - *Warfarin and/or parental anticoagulation education - *Follow up date to check INR post discharge At least 5 days overlap therapy as Inpatient No Meds if any: Prescribed or Continued at Discharge Note: Overlap Therapy is Warfarin and Anticoagulant Meds if any: NOT Prescribed or Continued at Discharge
[2017-10-21 14:44] VITALS: BP 140/60
--- NOTE | 2017-10-21 14:59 | RADIOLOGY REPORT ---
EXAMINATION: XR ABDOMEN CLINICAL INDICATION: Left ureteroscopy and stent exchange. COMPARISON: CT images of abdomen from 12 0- 17. TECHNIQUE: Intraoperative fluoroscopic imaging of the abdomen was utilized by Dr. Chinchilla. Number of saved images: 4. Fluoroscopy time: 54.6 seconds. Dose: 1.23 rad. FINDINGS: The images from retrograde ureterography shows mild pelvocaliectasis of the left kidney. Please refer to report of findings and urologic procedures provided by Dr. Chinchilla. The patient reportedly underwent a left ureteral stent exchange. IMPRESSION: Fluoroscopic imaging was utilized in the operating room.
--- NOTE | 2017-10-21 16:36 | ECHOCARDIOGRAM REPORT ---
JOEY LA[place] Age: 82 : 1935 Gender: M Exam Date: 10/20/2017 18:39 Exam Location: 1 [facility] Ht (in): 72 Wt (lb): 172 BSA: 1.99 BP: 128 / 64 Ordering Physician: Atilio Ledbetter MD Referring Physician: Luke Chisholm MD, PhD Technologist: Luisa Klein [facility] Room Number: [id number] Indications: ARRHYTHMIAS Rhythm: Sinus Technical Quality: fair FINDINGS Left Ventricle Normal left ventricular size, wall thickness and systolic function with no obvious regional wall motion abnormalities. Diastolic filling pattern is consistent with impaired LV relaxation. The ejection fraction is visually estimated at 70%. Right Ventricle The right ventricle is normal in size and function. A pacemaker lead is noted. Right Atrium The right atrium is normal in size. Left Atrium The left atrium is normal in size. The interatrial septum is intact. Mitral Valve The mitral valve is normal in structure and function. There is no mitral regurgitation. Aortic Valve Structurally normal aortic valve without significant sclerosis or stenosis. There is trace aortic regurgitation. Tricuspid Valve The tricuspid valve is normal in structure and function. There is trace tricuspid regurgitation. Pulmonary artery systolic pressure is normal. Pulmonic Valve Structurally normal pulmonic valve. There is no pulmonic regurgitation. Pericardium Normal pericardium without effusion. No pleural effusion. Great Vessels Normal aortic root dimension. The aortic arch and great vessels are well seen and are normal. CONCLUSIONS 1. Normal EF of 70% with impaired LV relaxation. 2. A pacemaker lead is noted in the right cardiac chambers. 3. Trace tricuspid regurgitation. 4. Trace aortic regurgitation. Luke Chisholm M.D. (Electronically Signed) Final Date: 21 October 2017 16:35 MEASUREMENTS (Male / Female) Normal Values 2D ECHO LV Diastolic Diameter PLAX 3.3 cm 4.2 - 5.9 / 3.9 - 5.3 cm LV Systolic Diameter PLAX 1.8 cm 2.1 - 4.0 cm LV Fractional Shortening PLAX 45.5 % 25 - 46 % LV Ejection Fraction 2D Teich 78.0 % IVS Diastolic Thickness 1.3 cm LVPW Diastolic Thickness 1.3 cm LV Relative Wall Thickness 0.8 RV Internal Dim ED PLAX 3.0 cm 1.9 - 3.8 cm LVOT Diameter 2.5 cm Aortic Root Diameter 3.8 cm LA Systolic Diameter LX 4.6 cm 3.0 - 4.0 / 2.7 - 3.8 cm LA Volume 31.0 cm 18 - 58 / 22 - 52 cm Ascending Aorta Diameter 3.6 cm DOPPLER AV Peak Velocity 146.0 cm/s AV Peak Gradient 8.5 mmHg AV Mean Velocity 101.0 cm/s AV Mean Gradient 5.0 mmHg AV Velocity Time Integral 28.1 cm LVOT Peak Velocity 136.0 cm/s LVOT Peak Gradient 7.4 mmHg LVOT Mean Velocity 79.6 cm/s LVOT Mean Gradient 3.0 mmHg LVOT Velocity Time Integral 30.0 cm LVOT Stroke Volume 147.3 cm AV Area Cont Eq vti 5.2 cm AV Area Cont Eq pk 4.6 cm MV Peak Velocity 92.2 cm/s MV Peak Gradient 3.4 mmHg MV Mean Velocity 59.8 cm/s MV Mean Gradient 2.0 mmHg Mitral E Point Velocity 60.7 cm/s Mitral A Point Velocity 85.9 cm/s Mitral E to A Ratio 0.7 MV PHT Velocity 83.3 cm/s MV Deceleration [place] 272.0 cm/s MV Pressure Half Time 91.9 ms MV Area PHT 2.4 cm MV Deceleration Time 346.0 ms TR Peak Velocity 220.0 cm/s TR Peak Gradient 19.4 mmHg Right Atrial Pressure 5.0 mmHg Pulmonary Artery Systolic Pressu 24.4 mmHg Right Ventricular Systolic Press 24.4 mmHg PV Peak Velocity 130.0 cm/s PV Peak Gradient 6.8 mmHg PV Mean Velocity 86.5 cm/s PV Mean Gradient 4.0 mmHg PV Velocity Time Integral 23.8 cm LV E' Lateral Velocity 12.5 cm/s Mitral E to LV E' Lateral Ratio 4.9 LV E' Septal Velocity 8.4 cm/s Mitral E to LV E' Septal Ratio 7.3
[2017-10-21 18:19] LABS: ABSOLUTE BASOPHIL COUNT 0 /CUMM (0.0-0.2); ABSOLUTE EOSINOPHIL COUNT 0 /CUMM (0.0-0.7); ABSOLUTE GRANULOCYTE CT 6.3 /CUMM (1.4-6.5); ABSOLUTE LYMPH COUNT 0.9 /CUMM (1.2-3.4); BASOPHIL % 0.5 % (0.0-2.0); EOSINOPHIL % 0.1 % (0-5); GRANULOCYTE % 76.8 % (42.2-75.2); HEMATOCRIT 23.8 % (42-52); MEAN CORPUSCULAR HGB 29.3 PG (27.0-31.0); MEAN CORPUSCULAR HGB CONC 32.6 G/DL (33.0-37.0); MEAN CORPUSCULAR VOLUME 89.9 FL (80.0-94.0); PLATELET COUNT 183 /CUMM (130-400); RBC DISTRIBUTION WIDTH 15.5 % (11.5-14.5); RED BLOOD CELL CT 2.65 /CUMM (4.70-6.10); WHITE BLOOD CELL COUNT 8.3 /CUMM (4.8-10.8)
[2017-10-21 22:34] VITALS: BP 140/56
--- NOTE | 2017-10-22 07:17 | PN- Housestaff ---
Rajinder JOYCE,[facility] 10/22/17 0717: Subjective Follow-up For: s/p ORIF s/p stent removal Subjective: I seen and examined the patient. Patient was lying comfortably in the bed. Offers no complaints. No overnight acute events. Seems to be in much better mood today. Continues to have hematuria Review of Systems Constitutional: Reports: see HPI. Objective Last 24 Hrs of Vital Signs/I&O Vital Signs Date Time Temp Pulse Resp B/P B/P Pulse O2 O2 Flow FiO2 Mean Ox Delivery Rate 10/22 09 70 136/60 10/22 0933 70 136/60 10/22 0725 97.8 70 20 136/60 98 Room Air 10/21 2234 97.9 68 20 140/56 99 Room Air 10/21 1444 97.9 76 20 140/60 95 Room Air Intake & Output 10/22 1600 10/22 0800 10/22 0000 Intake Total 100 360 Output Total 850 400 Balance -750 -40 Intake, Oral 100 360 Output, Urine 850 400 Physical Exam General Appearance: Alert, Oriented X3, Cooperative Cardiovascular: Normal S1, Normal S2 Lungs: Clear to Auscultation Abdomen: Normal Bowel Sounds, Soft Neurological: Normal Speech Current Medications: Current Medications Sig/Yanna Start time Last Medication Dose Route Stop Time Status Admin Acetaminophen 1,000 MG Q6P PRN 10/21 1515 AC 10/21 N/A 1 UNIT IV 1841 Acetaminophen 1,000 MG Q6P PRN 10/18 1545 DC 10/21 N/A 1 UNIT IV 0432 Amlodipine Besylate 5 MG DAILY 10/19 1000 AC 10/22 PO 0933 Atorvastatin Calcium 20 MG 1700 10/18 1700 AC 10/21 PO 1653 Bisacodyl 10 MG ONCE ONE 10/21 1500 DC NM 10/21 1501 Bisacodyl 5 MG ONE ONE 10/21 1500 DC 10/21 PO 10/21 1501 1653 Cholecalciferol 1,000 IU DAILY 10/19 1000 AC 10/22 PO 0932 Dabigatran 150 MG BID 10/21 2200 AC 10/22 PO 0932 Docusate Sodium 100 MG DAILY NEEDED PRN 10/18 1830 AC 10/20 PO 2136 Lidocaine 1 PAT DAILY 10/18 1915 AC 10/22 EXT 0932 Lisinopril 20 MG DAILY 10/19 1000 AC 10/22 PO 0933 Morphine Sulfate 1 MG Q6P PRN 10/18 1545 AC 10/21 IV 1653 Oxycodone/ 1 TAB ONCE PRN 10/21 2115 AC Acetaminophen PO Oxycodone/ 2 TAB Q4P PRN 10/21 1431 AC 10/22 Acetaminophen PO 0932 Oxycodone/ 1 TAB Q6P PRN 10/18 1915 DC 10/21 Acetaminophen PO 0840 Polyethylene Glycol 17 GM DAILY 10/18 1829 AC 10/22 PO 0931 Senna 187 MG AT BEDTIME 10/18 2200 AC 10/21 PO 2141 Last 24 Hrs of Lab/Laron Results Last 24 Hrs of Labs/Mics: Laboratory Tests 10/22/17 1000: Stone Analysis Pending, Stone Source Pending, Stone Nidus Pending, Stone Comment Pending, Stone Comment Pending 10/22/17 0720: Anion Gap 9, Estimated GFR > 60, BUN/Creatinine Ratio 19.0, CBC w Diff NO MAN DIFF REQ, RBC 2.57 L, MCV 89.4, MCH 29.8, RDW 15.7 H, MPV 7.8, Gran % 71.5, Lymphocytes % 13.3 L, Monocytes % 12.8 H, Eosinophils % 1.8, Basophils % 0.6, Absolute Granulocytes 5.3, Absolute Lymphocytes 1.0 L, Absolute Monocytes 0.9 H, Absolute Eosinophils 0.1, Absolute Basophils 0, PUBS MCHC 33.4 10/21/17 1728: CBC w Diff NO MAN DIFF REQ, RBC 2.65 L, MCV 89.9, MCH 29.3, RDW 15.5 H, MPV 8.0, Gran % 76.8 H, Lymphocytes % 10.9 L, Monocytes % 11.7 H, Eosinophils % 0.1, Basophils % 0.5, Absolute Granulocytes 6.3, Absolute Lymphocytes 0.9 L, Absolute Monocytes 1.0 H, Absolute Eosinophils 0, Absolute Basophils 0, PUBS MCHC 32.6 L Assessment/Plan Assessment: Patient is an 82-year-old male with significant past medical history of osteoporosis(T-score value of -2.9 in the femoral neck), atrial fibrillation s/p pacemaker on pradaxa, hypertension, hyperlipidemia, presbycusis, Chronic left- sided hydronephrosis s/p ureteral stent (4 weeks ago), mouth/tongue cancer, presented with an episode of fall. #Right intertrochanteric hip fracture s/p ORIF day 2 * Patient underwent ORIF on 10/20 without any complications. * Pradaxa restarted * PT/OT evaluation after surgery, patient will require STR * Continue current regimen for pain control #Severe chronic left -sided hydronephrosis with ureteral stent s/p removal day [address] Chinchilla consulting, patient has gross hematuria which has been going on for past few weeks. Patient was supposed to get ESWL and stent removal on before the present events. * Dr. Chinchilla removed renal stent on 10/21, patient continues to have hematuria expected post procedure. * Monitor H/H #Acute blood loss anemia s/p 2 units blood transfusion Patient dropped H&H on 10/19 from 8.5 to 6.9/25 to 20 likely secondary to hip fracture complicated with hematuria * CT pelvis showed small amount of hyperdense hemorrhage deep to the iliotibial band, see report for more details * Monitor H&H #Chronic medical conditions hypertension, hyperlipidemia, continue home medication of amlodipine lisinopril and atorvastatin #Diet -NPO in anticipation of procedure #DVT prophylaxis S/C HEPARIN #CODE STATUS- full code Problem List: 1. Hip fracture requiring operative repair 2. Nephrolithiasis Pain Ratin Pain Location: R hip Pain Goal: Pain 4 or less Pain Plan: prn Tomorrow's Labs & Rationales: cbc Travis Osborne MD 10/22/17 1225: Attending MD Review Statement Attending Statement Attending MD Statement: examined this patient, discuss w/resident/PA/JOURNEYMAN MOLDER, agreed w/resident/PA/JOURNEYMAN MOLDER, reviewed EMR data (avail) Attending Assessment/Plan: 82M PMH osteoporosis, atrial fibrillation on Pradaxa, sick sinus syndrome s/p PPM HTN, HLD, severe chronic right-sided hydronephrosis s/p ureteral stent( 4 weeks ago), presenting with slipping on ice with right comminuted intertrochanteric closed hip fracture. Course complicated by recent hematuria and stopping of Pradaxa for ureteral stent removal that had been planned as outpatient, with acute blood loss anemia secondary to hip fracture. Underwent surgical repair successfully on 10/20 and ureteral stent removal on 10/21. Patient has no complaints today and feels well. He still has gross hematuria. 1. Closed right intertrochanteric hip fracture 2. Fall, initial 3. Acute blood loss anemia 4. Paroxysmal atrial fibrillation 5. Chronic right sided hydronephrosis s/p ureteral stent placement Plan - Discontinue telemetry - Follow cardiology, orthopdic, urology recommendations - Monitor CBC - Continue home medications - Restart Pradaxa - Continue current regimen for pain control - Anticipated discharge tomorrow to [facility] pending stable Hgb
[2017-10-22 07:25] VITALS: BP 136/60
[2017-10-22 08:29] LABS: ABSOLUTE BASOPHIL COUNT 0 /CUMM (0.0-0.2); ABSOLUTE EOSINOPHIL COUNT 0.1 /CUMM (0.0-0.7); ABSOLUTE GRANULOCYTE CT 5.3 /CUMM (1.4-6.5); ABSOLUTE MONOCYTE COUNT 0.9 /CUMM (0.10-0.60); BASOPHIL % 0.6 % (0.0-2.0); EOSINOPHIL % 1.8 % (0-5); GRANULOCYTE % 71.5 % (42.2-75.2); MEAN CORPUSCULAR HGB 29.8 PG (27.0-31.0); MEAN CORPUSCULAR HGB CONC 33.4 G/DL (33.0-37.0); MEAN CORPUSCULAR VOLUME 89.4 FL (80.0-94.0); MEAN PLATELET VOLUME 7.8 FL (7.4-10.4); PLATELET COUNT 183 /CUMM (130-400); RBC DISTRIBUTION WIDTH 15.7 % (11.5-14.5); RED BLOOD CELL CT 2.57 /CUMM (4.70-6.10); WHITE BLOOD CELL COUNT 7.4 /CUMM (4.8-10.8)
[2017-10-22] MEDS ORDERED: PERCOCET 5-3251 EACH PO ×3 (09:25→09:41)
[2017-10-22] MEDS ORDERED: MORPHINE S10 MG/1 M1 IV (09:27)
--- NOTE | 2017-10-22 09:39 | Operative Report ---
Operative/Inv Procedure Report Surgery Date: 10/21/17 Name of Procedure: cysto: left ureteroscopy with laser litho of ureter stone, stent removal, retrograde pyelogram. Pre-Operative Diagnosis: left ureter and renal stones with stent. hematuria Post-Operative Diagnosis: same Estimated Blood Loss: scant Surgeon/Community Development Aide: MD Amor, Carey-urology Anesthesia: moderate sedation Specimens: left ureter stone and old stent Complications: none Operative/Procedure Note Note: The patient was taken to the operating room and placed on the OR table in supine position. With the patient awake, timeout was performed in order to confirm; correct patient, correct procedure, as well as correct laterality, and other pertinent meghan-operative information. After adequate anesthesia and antibiotics , the patient was then placed lithotomy stirrups, draped and prepped in the usual surgical fashion. A 22 German cystoscope sheath with 30 angle lens was inserted into the bladder without difficulty. Upon entering the bladder, the bladder was noted to be free of tumor free of stone. Both orifices were in their orthotopic position. The left ureter stent was grasped with alligator forcep, and the cystoscope along with entire stent was removed without difficulty. The cystoscope was then reinserted into the bladder. The left ureter orifice was intubated with an 8fr cone-tip catheter and a retrograde pyelogram with fluoroscopy was performed. A proximal ureter strictue, and a 7 mm left mid ureter filling defect (c/w stone), with mild proximal hydronephrosis, was visualized. The cone-tipped catheter was removed, followed by insertion of a 0.035 Glidewire, which was advanced into the left renal pelvis without difficulty, with correct placement confirmed on fluoroscopy. Leaving the Glidewire in place, an 8 German ureteral dilator was reloaded over the Glidewire. The dilator was advanced slowly, and easily, with fluoroscopic visualization and advanced beyond the ureteral orifice, effectively dilating the left ureteral orifice. The ureteral dilator was then removed, leaving the Glidewire in place. The flexible ureteroscope was reloaded over the Glidewire, and was ealily advanced into the bladder, and into the left ureter under direct fluoroscopic visualization. With the ureteroscope in the left renal pelvis, the large stone was visualized and noted to be impacted in the upper calyx of the kidney. If I performed laser lithotripsy on the stone, further hematuria and stent placement will be necessary, therefore I decided to leave this left renal stone in place as it was not causing any symptoms, or obstruction. The ureteroscope was retracted to the level of the mid ureter, where a 7 mm stone was visible. Under direct visualization the 400 g holmium YAG laser fiber was inserted through the ureteroscope. With the laser fiber in direct contact with the stone , laser lithotripsy was performed in order to pulverize the stone into multiple tiny fragments. The fragments were all flushed out, and fragments were sent to pathology for analysis. The Glidewire was then reinserted through the ureteroscope. Leaving the wire in place, the ureteroscope was removede, and the entire length of the ureter was carefully visualized on the way out:no additional stone, or tumor was seen. The 22 German cystoscope sheath with a 30 angle lens was then reinserted into the bladder, with the Glidewire back loaded into the scope. A tiger tail ureteral stent was railroaded over the Glidewire, and advanced into the distal left ureter. Retrograde pyelogram was performed, and the ureteral stent was then removed. After 2 minutes, fluoroscopy confirms adequate drainage of the left collecting system, without further ureteral obstructive filling defects The bladder was then drained, and the cystoscope was removed. The patient tolerated the procedure well was then taken to the recovery room in satisfactory condition. The patient is to follow up in 1-2 weeks for stent removal. Findings: 7mm left ureter stone: brisk drainage of contrast at end of surgery/with retrograde pyelogram-fluoro Discharge Disposition: PACU CC: Wes Chinchilla MD
--- NOTE | 2017-10-22 09:40 | PN- Urology ---
Surgical Brief Attending Note Brief Attending Note: Patient alert this morning, and states his voiding well. Vital signs stable, afebrile. No CVA tenderness bilaterally. Abdomen is soft. Mild gross hematuria persists postoperatively, she is expected. Recommend discharge to rehabilitation facility when cleared by orthopedics and medicine.
[2017-10-22] MEDS ORDERED: TYLENOL EXTRA500 M2 PO (09:41)
--- NOTE | 2017-10-22 11:33 | PN- Orthopedic ---
Subjective Subjective: Patient feeling better today. Pain is better controlled in the right hip. States she is moving his lower leg and ankle more freely Objective Vital Signs and I&Os Vital Signs Date Time Temp Pulse Resp B/P B/P Pulse O2 O2 Flow FiO2 Mean Ox Delivery Rate 10/22 0933 70 136/60 10/22 0933 70 136/60 10/22 0725 97.8 70 20 136/60 98 Room Air 10/21 2234 97.9 68 20 140/56 99 Room Air 10/21 1444 97.9 76 20 140/60 95 Room Air 10/21 1233 Room Air Intake & Output 10/22 1600 10/22 0800 10/22 0000 10/21 1600 10/21 0800 10/21 0000 Intake Total 100 360 600 0 200 Output Total 850 400 350 200 Balance -750 -40 250 -200 200 Intake, IV 200 Intake, Oral 100 360 400 0 200 Number 1 Bowel Movements Output, Urine 850 400 350 200 Patient 173 lb Weight Physical Exam: Well-developed well-nourished no apparent distress. HEENT: Atraumatic, extraocular motion intact Neck: Supple, no lymphadenopathy Respiratory: No respiratory distress Extremities: No edema RIGHT lower extremity hip dressing in place, Dressing with small amount of bloody drainage, incision is dry Incision without erythema Mild thigh swelling No signs of infection. No shortening or rotation Hip range of motion is limited and without unexpected pain Neurovascularly intact distally Bilateral calves are supple, nontender. Neuro: Alert and oriented x3 Psych: Mood affect normal, normal memory normal judgment. Skin: Warm and dry, no rash on exposed skin Results Last 48 Hours of Labs: Laboratory Tests 10/22 10/22 UNK 0720 Chemistry Sodium (137 - 145 mmol/L) 143 Potassium (3.5 - 5.1 mmol/L) 3.8 Chloride (98 - 107 mmol/L) 110 H Carbon Dioxide (22 - 30 mmol/L) 25 Anion Gap (5 - 16) 9 BUN (9 - 20 mg/dL) 19 Creatinine (0.7 - 1.2 mg/dL) 1.0 Estimated GFR (>60 ml/min) > 60 BUN/Creatinine Ratio (7 - 25 %) 19.0 Hematology CBC w Diff NO MAN DIFF REQ WBC (4.8 - 10.8 /CUMM) 7.4 RBC (4.70 - 6.10 /CUMM) 2.57 L Hgb (14.0 - 18.0 G/DL) 7.7 L Hct (42 - 52 %) 23.0 L MCV (80.0 - 94.0 FL) 89.4 MCH (27.0 - 31.0 PG) 29.8 RDW (11.5 - 14.5 %) 15.7 H Plt Count (130 - 400 /CUMM) 183 MPV (7.4 - 10.4 FL) 7.8 Gran % (42.2 - 75.2 %) 71.5 Lymphocytes % (20.5 - 51.1 %) 13.3 L Monocytes % (1.7 - 9.3 %) 12.8 H Eosinophils % (0 - 5 %) 1.8 Basophils % (0.0 - 2.0 %) 0.6 Absolute Granulocytes (1.4 - 6.5 /CUMM) 5.3 Absolute Lymphocytes (1.2 - 3.4 /CUMM) 1.0 L Absolute Monocytes (0.10 - 0.60 /CUMM) 0.9 H Absolute Eosinophils (0.0 - 0.7 /CUMM) 0.1 Absolute Basophils (0.0 - 0.2 /CUMM) 0 PUBS MCHC (33.0 - 37.0 G/DL) 33.4 Other Body Source Stone Analysis Pending Stone Source Pending Stone Nidus Pending Stone Comment Pending Stone Comment Pending 10/21 10/21 1524 6900 Chemistry Sodium (137 - 145 mmol/L) 141 Potassium (3.5 - 5.1 mmol/L) 4.0 Chloride (98 - 107 mmol/L) 110 H Carbon Dioxide (22 - 30 mmol/L) 22 Anion Gap (5 - 16) 9 BUN (9 - 20 mg/dL) 19 Creatinine (0.7 - 1.2 mg/dL) 1.0 Estimated GFR (>60 ml/min) > 60 BUN/Creatinine Ratio (7 - 25 %) 19.0 Hematology CBC w Diff NO MAN DIFF REQ NO MAN DIFF REQ WBC (4.8 - 10.8 /CUMM) 8.3 9.5 RBC (4.70 - 6.10 /CUMM) 2.65 L 2.63 L Hgb (14.0 - 18.0 G/DL) 7.8 L 7.9 L Hct (42 - 52 %) 23.8 L 23.4 L MCV (80.0 - 94.0 FL) 89.9 89.1 MCH (27.0 - 31.0 PG) 29.3 30.1 RDW (11.5 - 14.5 %) 15.5 H 15.7 H Plt Count (130 - 400 /CUMM) 183 173 MPV (7.4 - 10.4 FL) 8.0 8.2 Gran % (42.2 - 75.2 %) 76.8 H 78.5 H Lymphocytes % (20.5 - 51.1 %) 10.9 L 8.5 L Monocytes % (1.7 - 9.3 %) 11.7 H 12.9 H Eosinophils % (0 - 5 %) 0.1 0.1 Basophils % (0.0 - 2.0 %) 0.5 0 Absolute Granulocytes (1.4 - 6.5 /CUMM) 6.3 7.4 H Absolute Lymphocytes (1.2 - 3.4 /CUMM) 0.9 L 0.8 L Absolute Monocytes (0.10 - 0.60 /CUMM) 1.0 H 1.2 H Absolute Eosinophils (0.0 - 0.7 /CUMM) 0 0 Absolute Basophils (0.0 - 0.2 /CUMM) 0 0 PUBS MCHC (33.0 - 37.0 G/DL) 32.6 L 33.8 10/206 Hematology CBC w Diff NO MAN DIFF REQ WBC (4.8 - 10.8 /CUMM) 8.4 RBC (4.70 - 6.10 /CUMM) 2.91 L Hgb (14.0 - 18.0 G/DL) 8.8 L Hct (42 - 52 %) 26.1 L MCV (80.0 - 94.0 FL) 89.5 MCH (27.0 - 31.0 PG) 30.2 RDW (11.5 - 14.5 %) 15.4 H Plt Count (130 - 400 /CUMM) 189 MPV (7.4 - 10.4 FL) 7.7 Gran % (42.2 - 75.2 %) 92.2 H Lymphocytes % (20.5 - 51.1 %) 3.2 L Monocytes % (1.7 - 9.3 %) 4.5 Eosinophils % (0 - 5 %) 0 Basophils % (0.0 - 2.0 %) 0.1 Absolute Granulocytes (1.4 - 6.5 /CUMM) 7.8 H Absolute Lymphocytes (1.2 - 3.4 /CUMM) 0.3 L Absolute Monocytes (0.10 - 0.60 /CUMM) 0.4 Absolute Eosinophils (0.0 - 0.7 /CUMM) 0 Absolute Basophils (0.0 - 0.2 /CUMM) 0 PUBS MCHC (33.0 - 37.0 G/DL) 33.7 Assessment/Plan Assessment/Plan Postoperative day #2 status post right hip intertrochanteric fracture ORIF Weightbearing as tolerated right lower extremity Out of bed with physical therapy Eliquis for DVT prophylaxis 6 weeks Transfuse as needed per medicine secondary to acute blood loss anemia Dressing changed today, continue daily dressing changes
[2017-10-22 14:46] VITALS: BP 115/48
[2017-10-22 19:59] VITALS: BP 142/72
--- NOTE | 2017-10-22 22:10 | PN- Cardiology ---
Subjective Subjective: * Doing well. No chest discomfort or shortness of breath. * H/H 7.7/23.0 Objective Vital Signs and I&Os Vital Signs Date Time Temp Pulse Resp B/P B/P Pulse O2 O2 Flow FiO2 Mean Ox Delivery Rate 10/22 1959 98.1 80 18 142/72 96 Room Air 10/22 1446 98.6 68 20 115/48 93 Room Air 10/22 0933 70 136/60 10/22 0933 70 136/60 10/22 0725 97.8 70 20 136/60 98 Room Air 10/21 2234 97.9 68 20 140/56 99 Room Air Intake & Output 10/22 1600 10/22 0800 10/22 0000 10/21 1600 10/21 0800 10/21 0000 Intake Total 400 100 360 600 0 200 Output Total 375 850 400 350 200 Balance 25 -750 -40 250 -200 200 Intake, IV 200 Intake, Oral 400 100 360 400 0 200 Number 0 1 Bowel Movements Output, Urine 375 850 400 350 200 Patient 173 lb Weight Physical Exam: General: WD/WN male in NAD; alert and oriented x 3 Neck: no JVD, no carotid bruit Heart: RRR with 2/6 systolic murmur Lungs: clear bilaterally Extremities: no edema Assessment/Plan Assessment/Plan * This patient is only mildly active but has no history of myocardial ischemia, congestive heart failure or decreased EF. He has a permanent pacemaker. Continue Dabigatran. Continue telemetry? No
[2017-10-23 06:38] VITALS: BP 124/68
[2017-10-23 09:09] LABS: ABSOLUTE BASOPHIL COUNT 0 /CUMM (0.0-0.2); ABSOLUTE EOSINOPHIL COUNT 0.3 /CUMM (0.0-0.7); ABSOLUTE GRANULOCYTE CT 3.9 /CUMM (1.4-6.5); ABSOLUTE LYMPH COUNT 1.1 /CUMM (1.2-3.4); ABSOLUTE MONOCYTE COUNT 0.7 /CUMM (0.10-0.60); BASOPHIL % 0.8 % (0.0-2.0); EOSINOPHIL % 4.2 % (0-5); GRANULOCYTE % 64.6 % (42.2-75.2); HEMATOCRIT 24.1 % (42-52); MEAN CORPUSCULAR HGB 29.9 PG (27.0-31.0); MEAN CORPUSCULAR HGB CONC 33.6 G/DL (33.0-37.0); MEAN CORPUSCULAR VOLUME 88.8 FL (80.0-94.0); MEAN PLATELET VOLUME 7.6 FL (7.4-10.4); PLATELET COUNT 217 /CUMM (130-400); RBC DISTRIBUTION WIDTH 15.2 % (11.5-14.5); RED BLOOD CELL CT 2.72 /CUMM (4.70-6.10)
--- NOTE | 2017-10-23 12:19 | PN- Housestaff ---
Shalom Barrett 10/23/17 1219: Subjective Follow-up For: s/p ORIF s/p stent removal Subjective: Offers no complaints. Review of Systems Constitutional: Reports: see HPI. Objective Last 24 Hrs of Vital Signs/I&O Vital Signs Date Time Temp Pulse Resp B/P B/P Pulse O2 O2 Flow FiO2 Mean Ox Delivery Rate 10/23 0801 132/70 10/23 0801 132/70 10/23 0638 98.2 66 18 124/68 97 10/22 1959 98.1 80 18 142/72 96 Room Air Intake & Output 10/23 1600 10/23 0800 10/23 0000 Intake Total 680 240 Output Total 400 300 Balance -400 380 240 Intake, Oral 680 240 Number 2 3 Bowel Movements Output, Urine 400 300 Physical Exam General Appearance: Alert, Oriented X3, Cooperative Cardiovascular: Regular Rate, Normal S1 Lungs: Clear to Auscultation, Normal Air Movement Extremities: No Edema Current Medications: Current Medications Sig/Yanna Start time Last Medication Dose Route Stop Time Status Admin Acetaminophen 1,000 MG Q6P PRN 10/21 1515 AC 10/21 N/A 1 UNIT IV 1841 Amlodipine Besylate 5 MG DAILY 10/19 1000 AC 10/23 PO 0801 Atorvastatin Calcium 20 MG 1700 10/18 1700 AC 10/22 PO 1613 Bisacodyl 10 MG DAILY NEEDED PRN 10/22 1415 AC 10/22 NH 0900 Cholecalciferol 1,000 IU DAILY 10/19 1000 AC 10/23 PO 1050 Dabigatran 150 MG BID 10/21 2200 AC 10/23 PO 0802 Docusate Sodium 100 MG DAILY NEEDED PRN 10/18 1830 AC 10/20 PO 2136 Lidocaine 1 PAT DAILY 10/18 1915 AC 10/23 EXT 0802 Lisinopril 20 MG DAILY 10/19 1000 AC 10/23 PO 0801 Morphine Sulfate 1 MG Q6P PRN 10/18 1545 AC 10/21 IV 1653 Oxycodone/ 1 TAB ONCE PRN 10/21 2115 DC 10/23 Acetaminophen PO 0016 Oxycodone/ 2 TAB Q4P PRN 10/21 1431 AC 10/23 Acetaminophen PO 0804 Polyethylene Glycol 17 GM DAILY 10/18 1829 AC 10/23 PO 0802 Senna 187 MG AT BEDTIME 10/18 2200 AC 10/22 PO 2106 Last 24 Hrs of Lab/Laron Results Last 24 Hrs of Labs/Mics: Laboratory Tests 10/23/17 0805: CBC w Diff NO MAN DIFF REQ, RBC 2.72 L, MCV 88.8, MCH 29.9, RDW 15.2 H, MPV 7.6, Gran % 64.6, Lymphocytes % 19.0 L, Monocytes % 11.4 H, Eosinophils % 4.2, Basophils % 0.8, Absolute Granulocytes 3.9, Absolute Lymphocytes 1.1 L, Absolute Monocytes 0.7 H, Absolute Eosinophils 0.3, Absolute Basophils 0, PUBS MCHC 33.6 Assessment/Plan Assessment: Patient is an 82-year-old male with significant past medical history of osteoporosis(T-score value of -2.9 in the femoral neck), atrial fibrillation s/p pacemaker on pradaxa, hypertension, hyperlipidemia, presbycusis, Chronic left- sided hydronephrosis s/p ureteral stent (4 weeks ago), mouth/tongue cancer, presented with an episode of fall. #Right intertrochanteric hip fracture s/p ORIF day 3 * Patient underwent ORIF on 10/20 without any complications. * Pradaxa restarted * Patient will require STR, stable for discharge #Severe chronic left -sided hydronephrosis with ureteral stent s/p removal day 2 H and H stable. Continue with Uro. #Chronic medical conditions hypertension, hyperlipidemia, continue home medication of amlodipine lisinopril and atorvastatin #Diet -NPO in anticipation of procedure #DVT prophylaxis S/C HEPARIN #CODE STATUS- full code Problem List: 1. 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
[2017-10-23 15:00] VITALS: BP 132/70
[2017-10-23 15:09] VITALS: BP 98/56
--- NOTE | 2017-10-23 15:53 | PN- Orthopedic ---
Surgical Brief Attending Note Brief Attending Note: comfortable in chair accompainied by mild thigh swelling calf soft rehab later today s/p IM gerson hip fracture
== END 2017-10-23 18:14 | DRG 481 ==
LOC: DELPENDDIS → ERH 09:42 → ERHI 12:24 → 1NO 12:24 → ENRESERV 14:14 → ENTRNSPT 16:12 → EDTRNSPTSTS 16:18 → 1NO 16:40 → CMPTRNSPT 16:56 → 1NO 10-19 08:18 → ENTRNSPT 10-20 16:08 → EDTRNSPTSTS 10-20 16:21 → EDTRNSPT 10-20 16:21 → CMPTRNSPT 10-20 16:44 → ENPENDDIS 10-22 12:25 → ENTRNSPT 10-22 19:05 → 2NB 10-22 19:44 → CMPTRNSPT 10-22 20:01 → 2NB 10-23 18:14
PROVIDERS: Emergency Medicine; Internal Medicine; Internal Medicine Adolescent Medicine
PROC: 30233N1 Transfusion of Nonautologous Red Blood Cells into Peripheral Vein, Percutaneous Approach (ICD-10-PCS; 2017-10-19)
PROC: 0QH636Z Insertion of Intramedullary Internal Fixation Device into Right Upper Femur, Percutaneous Approach (ICD-10-PCS; principal; 2017-10-20)
PROC: 0QS6XZZ Reposition Right Upper Femur, External Approach (ICD-10-PCS; principal; 2017-10-20)
PROC: 0TF48ZZ Fragmentation in Left Kidney Pelvis, Via Natural or Artificial Opening Endoscopic (ICD-10-PCS; 2017-10-21)
PROC: 0T778DZ Dilation of Left Ureter with Intraluminal Device, Via Natural or Artificial Opening Endoscopic (ICD-10-PCS; 2017-10-21)
PROC: 0TC78ZZ Extirpation of Matter from Left Ureter, Via Natural or Artificial Opening Endoscopic (ICD-10-PCS; 2017-10-21)
PROC: BT1FZZZ Fluoroscopy of Left Kidney, Ureter and Bladder (ICD-10-PCS; 2017-10-21)
PROC: 0TP98DZ Removal of Intraluminal Device from Ureter, Via Natural or Artificial Opening Endoscopic (ICD-10-PCS; 2017-10-21)
DX: S72.141A Displaced intertrochanteric fracture of right femur, initial encounter for closed fracture (principal); I45.2 Bifascicular block; R31.0 Gross hematuria; I48.0 Paroxysmal atrial fibrillation; D62 Acute posthemorrhagic anemia; N13.2 Hydronephrosis with renal and ureteral calculous obstruction; I10 Essential (primary) hypertension; H91.10 Presbycusis, unspecified ear; W00.0XXA Fall on same level due to ice and snow, initial encounter; M81.0 Age-related osteoporosis without current pathological fracture; Y92.007 Garden or yard of unspecified non-institutional (private) residence as the place of occurrence of the external cause; E78.5 Hyperlipidemia, unspecified; Z85.810 Personal history of malignant neoplasm of tongue; Z95.0 Presence of cardiac pacemaker; Z87.891 Personal history of nicotine dependence
CPT/HCPCS: 1NP; 2NBP; 36415; 72170; 73070-RT; 73502-RT; 73560-RT; 74000; 81001; 82355; 82436; 86920; 93005; 93010; 93306; 96374; 97110-GO; 97116-GO; 97161-GP; 97530-GO; J0131; J0690; J3370; J7040; P9016